=== PATIENT | male | born 1975 | race Caucasian/White ===

== ENCOUNTER 2019-08-25 10:37 | Inpatient (IN) | payer SELFPAY ==
[2019-08-25 11:35] LABS: Hematocrit 39 % (42-52); Hemoglobin 13.6 g/dL (14.0-18.0); Mean Corpuscular HGB Conc 35 g/dL (31-36); Mean Corpuscular Hemoglobin 34 pg (27-31); Mean Corpuscular Volume 99 fL (80-94); Red Blood Count 3.96 10^6 /uL (4.18-5.48); Red Cell Distribution Width 15 % (10-15); White Blood Count 4.9 10^3/uL (3.5-10.8)
[2019-08-25 11:36] LABS: INR 1.63 (0.82-1.09)
[2019-08-25 11:54] LABS: Albumin 3.5 g/dL (3.2-5.2); Albumin/Globulin Ratio 1.2 (1-3); BUN/Creatinine Ratio 5.6 (8-20); Calcium 8.4 mg/dL (8.6-10.3); EGFR Non-African American 74.4 (>60); Globulin 2.9 g/dL (2-4); Potassium 3.3 mmol/L (3.5-5.0); Total Protein 6.4 g/dL (6.4-8.9)
[2019-08-25 12:03] LABS: ABS Basophils 0.2 10^3/ul (0-0.2); ABS Lymphocytes 0.6 10^3/ul (1.0-4.8); ABS Monocytes 0.2 10^3/ul (0-0.8); ABS Neutrophils 3.9 10^3/ul (1.5-7.7); Eosinophil % 0.7 %; Lymphocyte % 11.3 %; Mean Platelet Volume 7.8 fL (7.4-10.4); Nucleated Red Blood Cells % 0.1; Platelet Count 94 10^3/uL (150-450)
--- NOTE | 2019-08-25 12:07 | ED ---
Complex/Multi-Sys Presentation - HPI Summary HPI Summary: Patient is a 44 y/o male w/ Hx of alcoholic hepatitis who presents to [facility] with chief complaint of diffuse jaundice. Color has been worsening since . Patient states that he drinks around 20 beers daily. He believes that he has been retaining fluid and also makes note of a recent mechanical fall. No AMS or abdominal pain reported. He denies Hx of seizures. Patient reports that he does not have a PCP currently. No daily medications are reported. SI is denied. Patient states that he has never been in rehab or detox but does note the last time he was hospitalized, he quit drinking alcohol for 8 months. Sister is present in the room. Pt does not report any fever, chills, erythema of eyes, sore throat, CP, SOB, cough, abdominal pain, N/V, dysuria, hematuria, myalgia, rash, or dizziness. On triage, pain is rated 0/10, nothing is noted to aggravate/alleviate Sx. Home medications and allergies are reviewed. - History Of Current Complaint Chief Complaint: EDGeneral Time Seen by Provider: 08/25/19 11:27 Hx Obtained From: Patient Onset/Duration: Lasting Weeks, Still Present Timing: Constant, Weeks Severity Currently: None - pain denied Aggravating Factor(s): nothing Alleviating Factor(s): nothing Associated Signs And Symptoms: Positive: Other - positive - jaundice, retention of fluid, fall; negative - AMS, fever, chills, erythema of eyes, sore throat, CP , SOB, cough, abdominal pain, N/V, dysuria, hematuria, myalgia, rash, SI or dizziness. Negative: Dizziness, SOB, Cough, Chest Pain, Nausea, Vomiting, Abdominal Pain, Fever - Allergies/Home Medications Allergies/Adverse Reactions: Allergies Allergy/AdvReac Type Severity Reaction Status Date / Time No Known Allergies Allergy Verified 08/25/19 10:52 Home Medications: Home Medications NK [No Home Medications Reported] 08/25/19 [History Confirmed 08/25/19] PMH/Surg Hx/FS Hx/Imm Hx Endocrine/Hematology History: Denies: Hx Diabetes, Hx Thyroid Disease Cardiovascular History: Denies: Hx Hypertension Respiratory History: Denies: Hx Asthma, Hx Chronic Obstructive Pulmonary Disease (COPD), Other Respiratory Problems/Disorders GI History: Reports: Hx Jaundice Denies: Hx Ulcer Comment Only: Hx Cirrhosis - possible Infectious Disease History: Yes Infectious Disease History: Reports: Hx Hepatitis Denies: Hx Clostridium Difficile, Hx Human Immunodeficiency Virus (HIV), Hx of Known/Suspected MRSA, Hx Shingles, Hx Tuberculosis, History Other Infectious Disease, Traveled Outside the [place] in Last 30 Days - Family History Known Family History: Negative: Cardiac Disease, Hypertension, Diabetes - Social History Alcohol Use: Daily Alcohol Amount: 20 beers daily Substance Use Type: Reports: None Smoking Status (MU): Former Smoker Type: Cigarettes Review of Systems Negative: Fever, Chills Negative: Drainage Negative: Sore Throat Negative: Chest Pain Negative: Shortness Of Breath, Cough Negative: Abdominal Pain, Vomiting, Nausea Negative: dysuria, hematuria Musculoskeletal: Other - positive - recent fall Positive: Edema - reports retention of fluid . Negative: Myalgia Skin: Other - positive - jaundice Negative: Rash Neurological: Other - negative - AMS, dizziness Psychological: Other - negative - SI All Other Systems Reviewed And Are Negative: Yes Physical Exam - Summary Physical Exam Summary: Constitutional: Well-developed, Well-nourished, Alert. (-) Distressed Skin: Jaundiced Skin; Warm, Dry HENT: Normocephalic; Atraumatic Eyes: Sclera Icterus. Neck: Musculoskeletal ROM normal neck. (-) JVD, (-) Stridor, (-) Tracheal deviation Cardio: Rhythm regular, rate normal, Heart sounds normal; Intact distal pulses; The pedal pulses are 2+ and symmetric. Radial pulses are 2+ and symmetric. (-) Murmur Pulmonary/Chest wall: Effort normal. (-) Respiratory distress, (-) Wheezes, (-) Rales Abd: Soft, (-) tenderness, (-) Distension, (-) Guarding, (-) Rebound Musculoskeletal: (-) Edema Lymph: (-) Cervical adenopathy Neuro: Alert, Oriented x3 Psych: Mood and affect Normal Triage Information Reviewed: Yes Vital Signs On Initial Exam: Initial Vitals Temp Pulse Resp BP Pulse Ox 96.9 F 104 19 150/77 99 08/25/19 10:48 08/25/19 10:48 08/25/19 10:48 08/25/19 10:48 08/25/19 10:48 Vital Signs Reviewed: Yes Procedures - Sedation Patient Received Moderate/Deep Sedation with Procedure: No Diagnostics - Vital Signs Vital Signs Temp Pulse Resp BP Pulse Ox 08/25/19 10:48 96.9 F 104 19 150/77 99 - Laboratory Result Diagrams: 08/25/19 11:18 08/25/19 11:18 Lab Statement: Any lab studies that have been ordered have been reviewed, and results considered in the medical decision making process. Re-Evaluation - Re-Evaluation First Eval Re-Evaluation Time: 13:10 Comment: Updates on lab results, patient is agreeable with admission Complex Multi-Symp Course/Dx Course Of Treatment: Patient is a 44 y/o male w/ Hx of alcoholic hepatitis who presents to [facility] with chief complaint of diffuse jaundice. Color has been worsening since 07/29/19. Patient states that he drinks around 20 beers daily. He believes that he has been retaining fluid and also makes note of a recent mechanical fall. No AMS or abdominal pain reported. On physical exam, skin is jaundiced, sclera icterus is noted. Bloodwork showed total bilirubin 31.40, direct bilirubin 19.40, AST 246, alk phos 217, ALT 64, ammonia 113, serum alc 233, glucose 313, calcium 8.4, BUN/creatinine ratio 5.6, anion gap 13. Chloride 95, potassium 3.3, sodium 132, INR 1.63, absolute lymphs 0.6, plt count 94, MCH 34, MCV 99, Hct 39, Hgb 13.6, RBC 3.96. Patient's case was discussed with Dr. Mckinley, who recommends that the patient should be admitted. It is noted that the patient is not a liver transplant candidate due to the fact that he is still drinking daily. Patient's case was discussed with Dr. Al, who accepts the patient for admission. - Diagnoses Provider Diagnoses: Alcoholic hepatitis, Hepatic failure - Physician Notifications Discussed Care Of Patient With: Ted Mckinley Time Discussed With Above Provider: 12:52 Instructed by Provider To: Other - 1252 - Patient's case was discussed with Dr. Mckinley, who recommends that the patient should be admitted. It is noted that the patient is not a liver transplant candidate due to the fact that he is still drinking daily. 1256 - Patient's case was discussed with Dr. Al, who accepts the patient for admission. - Critical Care Time Critical Care Time: 30-74 min - 35 minutes CCT Discharge ED - Sign-Out/Discharge Documenting (check all that apply): Patient Departure - admit - Discharge Plan Condition: Stable Disposition: ADMITTED TO [facility] Referrals: No Primary Care Phys,NOPCP [Primary Care Provider] - - Attestation Statements Document Initiated by Scribe: Yes Documenting Scribe: STEVE BARCENAS Provider For Whom Scribe is Documenting (Include Credential): GUILLERMINA MICHELLE MD Scribe Attestation: ISTEVE, scribed for GUILLERMINA MICHELLE MD on 08/25/19 at 1434. Status of Scribe Document: Ready
[2019-08-25 12:15] LABS: Total Bilirubin 31.4 mg/dL (0.2-1.0)
[2019-08-25] MEDS ORDERED: Docusate CAP* 100 MG PO PRN (14:19)
[2019-08-25] MEDS ORDERED: NS 0.9% 1000 ML** 1,000 ML IV SCH (14:30)
[2019-08-25] MEDS ORDERED: Acetaminophen TAB* 325 MG PO PRN (15:02)
[2019-08-25] MEDS ORDERED: Dextrose 50% VIAL 50 ml IV PUSH PRN (15:31)
[2019-08-25] MEDS ORDERED: Potassium Chlor TAB* 20 MEQ TAB.ER PO ONE (15:32)
[2019-08-25] MEDS ORDERED: Potassium Chloride* LIQUID 20 MEQ/15 ML UDC PO ONE (15:32)
--- NOTE | 2019-08-25 17:15 | HP ---
ADMISSION HISTORY AND PHYSICAL: DATE OF ADMISSION: 08/25/19 PRIMARY CARE PROVIDER: None. ATTENDING FOR THIS ADMISSION: Dr. Tomeka Abraham.* (DICTATED BY VERN MILLAN NP) CHIEF COMPLAINT: Jaundice. HISTORY OF PRESENT ILLNESS: Mr. Begum is a 44-year-old male patient with longstanding history of alcohol use and abuse, who presents in the emergency department today with his sister with a complaint of abdominal bloating and yellow discoloration to the skin. The patient states he several years ago did have detox from alcohol and abstained for 8 months at that time; however, he did start drinking again shortly thereafter. He did notice that around that his skin did start to change and he began to have noticeable jaundice at that time. He states his sister also noticed the discoloration to his skin and became concerned. He also noted that he started to become fluid bound and that his abdomen had started to become larger over the last 2 months. For these reasons, the patient states that he had his last drink of alcohol yesterday. He currently consumes anywhere from 20 to 30 alcoholic drinks per day, primarily beer. The patient states that the last time he detoxed from alcohol he was drinking vodka at that time. When he started drinking again, he thought drinking beer would not be a significant problem, so he drank beer instead, but he is drinking up to 30 beers per day, so his last beer was yesterday and he came to the emergency department today for evaluation. The patient states he knows he did have liver disease the last time he detoxed and he was concerned with the increase in jaundice that his liver disease has returned. In the emergency department, his laboratories do reveal some anemia. His H and H are low, MCV and MCH are high. His liver function tests are elevated. His total bilirubin is 31.5 and direct bili is 19.4. He also has a significantly elevated glucose and ammonia level is also elevated. His serum alcohol level remains high at 233, even though his last drink was yesterday. For these reasons, the emergency department physician reached out to Dr. Mckinley of GI service and also to hospitalist service to admit the patient. PAST MEDICAL HISTORY: As stated by him is none, although he has not been to a primary care physician in many years. His last hospitalization was approximately 5 years ago for alcohol detox and that was his last visit to a doctor. HOME MEDICATIONS: None as reported by the patient. ALLERGIES: He has no known drug allergies. FAMILY HISTORY: Mother of throat cancer at age 63. Father is alive, has diabetes, he is aged 72. He has a sister, who is alive and healthy. SOCIAL HISTORY: He did use to smoke. He did quit approximately 4 years ago. Alcohol consumption, 20 to 30 beers per day with last drink being yesterday. REVIEW OF SYSTEMS: The patient endorses positive nausea, but no vomiting, feeling of a reflux periodically and some cough. He denies any chest pain. No acute shortness of breath. No urinary complaints. No focal weakness. No visual disturbances. No rashes or lesions and no further constitutional complaints. PHYSICAL EXAMINATION GENERAL: Reveals a gentleman somewhat older than his stated age, tearful, but in no acute distress. VITAL SIGNS: Blood pressure 125/73, heart rate 80, respiratory rate 16, O2 saturation 95% on room air with a temperature of 99.5. HEENT: The patient is atraumatic, normocephalic. PERRLA. Icteric sclerae with some erythema to the lower lids. His eyes do appear to be a bit glassy. He has some capillary changes and some telangiectasia to the cheeks. Oral mucosa is moist. Tongue is midline. NECK: Supple, nontender. No JVD noted. No carotid bruits auscultated. LUNGS: Clear bilaterally to auscultation with no wheezing, rhonchi, or rales. CARDIOVASCULAR: S1, S2 present. Rate and rhythm are regular. No murmurs, gallops, or rubs noted. ABDOMEN: Soft, somewhat protuberant, but nondistended, nontender. No organomegaly appreciated. : Deferred. MUSCULOSKELETAL: There was no clubbing and no cyanosis. Skin on the lower extremities is somewhat taut and shiny, but there is no edema. NEUROLOGIC: Grossly intact with no focal deficits. PSYCHIATRIC: He is tearful, but otherwise cooperative and appropriate. SKIN: Skin in general is quite jaundiced, but there are no lesions and skin is otherwise warm, dry, and intact. DIAGNOSTIC STUDIES/LAB DATA: WBCs 4.9, RBCs 3.96, hemoglobin 13.6, hematocrit 39, MCV 99, MCH 34, platelets 94. Sodium 132, potassium 3.3, chloride 95, CO2 of 24, anion gap 13, BUN 6, creatinine 1.07, GFR 74.4, BUN/creatinine ratio 5.6 , glucose 313, calcium 8.4. Total bilirubin 31.40, direct bili 19.40, AST 246, ALT 64, alk phos 217, ammonia 113. Total protein 6.4, albumin 3.5, globulin 2.9 , albumin/globulin ratio 1.2. Lipase 47. Serum alcohol 233. INR is 1.63. Imaging: Ultrasound for paracentesis is pending. IMPRESSION: Mr. Begum is a 44-year-old male patient with a longstanding history of alcohol abuse, who presents to the emergency department today with profound jaundice, hepatic failure, and hyperbilirubinemia. PLAN: The patient has been admitted. 1. Liver failure secondary to alcohol abuse. The patient is profoundly jaundiced with an elevated T. bili. GI has been consulted. Dr. Mckinley will be seeing the patient tomorrow. In the meantime, we will send the patient for a diagnostic paracentesis to rule out spontaneous bacterial peritonitis. This will guide our therapy in terms of starting the patient on steroids or not tomorrow. The patient also has accompanying thrombocytopenia and coagulopathy. His INR is elevated and platelets are below 100. Our concern at this time is to continue to follow his laboratory results and ensure that he does not have any spontaneous bleeding and also that his creatinine and other laboratory values remain stable. We will defer to guidance from GI regarding additional medications and further therapy. This will also likely be determined by the results of his tap that he will have today. 2. Alcohol abuse. The patient will be given a banana bag. As his serum alcohol is still elevated, I suspect that he will not start detoxing until this falls below 100 and into normal limits or closer to 0. He has been placed on WAM protocol with Ativan. Currently, he is slightly tremulous, but is not showing overt signs of withdrawal as yet. He will be on WAM assessment every 2 hours and will be monitored closely. A consultation for Social Work has been placed. 3. Hyperglycemia. The patient denies any previous medical history; however, his glucose is 313. He will be placed on insulin sliding scale with lispro and a consistent carbohydrate diet and we will also check hemoglobin A1c and determine if the patient is in fact diabetic. Being that he has had no community followup and no primary care provider, I suspect there may be some component of diabetes or prediabetes. 4. Multiple electrolyte disturbances. Again, this is in the presence of hepatic failure and also likely nutritional imbalances. We will replete electrolytes accordingly. 5. Anemia, macrocytic and hypochromic. This is in the presence of alcoholism and I suspect he probably has B12 deficiency as well also in the presence of liver failure. We will continue to monitor liver function and also check his B levels; however, he is receiving thiamine, folate and multivitamins as well. We will also place consultation with Nutrition while we are trying to continue to stabilize the patient. 6. DVT prophylaxis: The patient is high risk for bleeding given his thrombocytopenia and elevated INR. He will have SCDs and ambulation only. 7. Diet: Consistent carbohydrate as tolerated. 8. Disposition: The patient has been admitted to inpatient. The rest of the patient's course will be determined by further diagnostics, laboratories, and any other input from other providers as warranted during this admission. TIME SPENT: 70 minutes on admission plan of care. This plan of care has been discussed with Dr. Tomeka Abraham and she is in agreement with the plan. VERN MILLAN NP [id number]/[facility] #: [id number] MELISSA
[2019-08-25] MEDS: Insulin LISPRO* 1 UNITS UNIT SUBCUT SCH ×2 (17:38→20:12)
[2019-08-25] MEDS ORDERED: Thiamine IV 100 MG, Folic Acid IV* 1 MG, Multiple Vitamin IV ADULT* 10 ML in NS 0.9% 10... IV ONE (18:00)
[2019-08-25] MEDS: Thiamine IV 100 MG, Folic Acid IV* 1 MG, Multiple Vitamin IV ADULT* 10 ML in NS 0.9% 10... IV ONE ×2 (18:12→18:45)
[2019-08-25] MEDS: PrednisoLONE 3 MG/ML ORAL.SOLU 15 MG/5 ML ORAL.SOLN PO SCH (18:21)
[2019-08-25] MEDS: Gabapentin CAP(*) 300 MG PO SCH (20:10)
--- NOTE | 2019-08-25 20:32 | CONS ---
CONSULTATION REPORT: DATE OF CONSULT: 08/25/19 REQUESTING PROVIDERS: Dr. Cote and Corinne Aguero NP REASON FOR CONSULTATION: Alcoholic hepatitis, jaundice. HISTORY OF PRESENT ILLNESS: This is a 44-year-old male with a longstanding history of alcohol abuse, who presented to the emergency room today with jaundice and abdominal bloating. He states that his last drink was yesterday. He drinks 20 to 30 beers a day. He did have a brief 6- to 7-month period of abstinence a few years ago after an episode of alcoholic hepatitis. He states that he then became bored and then returned to alcoholism. 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 He denies any history of IV drug use or blood transfusions before 1991 or homemade tattoos. He denies any increase in abdominal size, admits to some lower extremity edema. Does admit to a tremor. He denies any hematemesis. He denies any dysphagia or odynophagia. Denies any abdominal discomfort. Denies any weight loss or weight gain. Remainder of the 14-point review of systems is grossly negative. PAST MEDICAL HISTORY: Previous episode of alcoholic hepatitis in 2014. HOME MEDICATIONS: None. ALLERGIES: No known drug allergies. FAMILY HISTORY: Maternal alcoholism and liver disease. She of potentially esophageal cancer at 63. Father is a diabetic. SOCIAL HISTORY: Consumes 20 to 30 beers a day. Occasional marijuana use. Denies any intravenous or other illicit drugs. REVIEW OF SYSTEMS: Remainder of the 14-point review of systems is grossly negative. PHYSICAL EXAMINATION: Vital Signs: Blood pressure is 149/67, pulse 89, respiratory rate 14, 98.6 was temperature, 98% on room air. In general, alert, oriented x3, jaundiced. HEENT: Atraumatic, normocephalic. Pupils equal, round , reactive to light. Extraocular movements are intact. Conjunctivae are pink. Sclerae are icteric bilaterally. Cardiovascular: Regular rate and rhythm. S1 , S2. Respiratory: Clear to auscultation bilaterally. Abdomen: Soft, nontender, nondistended. Bowel sounds positive. No appreciating shifting dullness. Extremities: 1+ edema bilaterally. Neuro: Asterixis is present. Skin: Few scattered ecchymosis. LABORATORY DATA: Hemoglobin 13.6, INR 1.63, bilirubin 31.4, direct is 19.4, AST is 246, ALT is 64, alkaline phosphatase 117, ammonia 113, sodium 132, potassium 3.3, creatinine 1.07, albumin 3.5, serum alcohol level in the emergency room is 233. He had an abdominal ultrasound that did not reveal any ascitic fluid. ASSESSMENT AND PLAN: This is a 44-year-old male with alcoholic hepatitis, likely component of cirrhosis in a setting of longstanding alcohol abuse. 1. Alcoholic hepatitis. Discriminant function above 32. No evidence of infection. I would recommend that we start steroids. I will start prednisolone 40 mg p.o. daily. Discussed extensively with him that he absolutely needs to cease alcohol in entirety. His risk of in the next year with continued alcohol use likely reaches upwards of 80 to 90%. I discussed with him the inpatient rehab is likely the best option for him and if it is offered that he should take it. His MELD-Na score is 28 indicating a risk of of about 30% over the next 3 months, however, with the component of alcoholic hepatitis his risk of is likely in excess of 45% even with optimal medical therapy and abstinence. He is not a transplantation candidate given multiple relapses in the past despite strong counseling and continued use up until today. 2. Possible cirrhosis. MELD-Na is 28, unclear exactly how much this is alcoholic hepatitis versus cirrhosis. Needs an eventual EGD in the next month or so to evaluate for varices. Should have an ultrasound of the right upper quadrant to rule out hepatoma and also to evaluate the portal veins. 3. Alcohol abuse, extensively counseled. [id number]/[facility] #: [id number] [facility]ITALKali
[2019-08-26 06:55] LABS: ABS Lymphocytes 0.3 10^3/ul (1.0-4.8); ABS Monocytes 0.2 10^3/ul (0-0.8); ABS Neutrophils 2.8 10^3/ul (1.5-7.7); Eosinophil % 0.2 %; Hematocrit 34 % (42-52); Hemoglobin 11.8 g/dL (14.0-18.0); Lymphocyte % 8.7 %; Mean Corpuscular HGB Conc 35 g/dL (31-36); Mean Corpuscular Hemoglobin 34 pg (27-31); Mean Corpuscular Volume 98 fL (80-94); Mean Platelet Volume 8.2 fL (7.4-10.4); Platelet Count 68 10^3/uL (150-450); Red Blood Count 3.51 10^6 /uL (4.18-5.48); Red Cell Distribution Width 15 % (10-15); White Blood Count 3.3 10^3/uL (3.5-10.8)
[2019-08-26 06:57] LABS: INR 1.77 (0.82-1.09)
[2019-08-26 07:05] LABS: Albumin 3.1 g/dL (3.2-5.2); Calcium 7.8 mg/dL (8.6-10.3); Potassium 3.3 mmol/L (3.5-5.0)
[2019-08-26 07:11] LABS: Albumin/Globulin Ratio 1.2 (1-3); BUN/Creatinine Ratio 7.1 (8-20); EGFR Non-African American 98.4 (>60); Globulin 2.5 g/dL (2-4); Total Protein 5.6 g/dL (6.4-8.9)
[2019-08-26 07:15] LABS: Total Bilirubin 28.3 mg/dL (0.2-1.0)
[2019-08-26] MEDS: KCL 20 MEQ/100 ML IVPREMIX* 20 MEQ/100 ML BAG IV SCH ×2 (07:57→10:30)
[2019-08-26] MEDS: Thiamine TAB* 100 MG TAB PO SCH (08:01)
[2019-08-26] MEDS: Multivitamins/Minerals TAB PO SCH (08:01)
[2019-08-26] MEDS: Folic Acid TAB* 1 MG PO SCH (08:01)
[2019-08-26] MEDS: Insulin LISPRO* 1 UNITS UNIT SUBCUT SCH ×4 (08:11→20:08)
[2019-08-26] MEDS: PrednisoLONE 3 MG/ML ORAL.SOLU 15 MG/5 ML ORAL.SOLN PO SCH (10:16)
--- NOTE | 2019-08-26 10:32 | PN ---
Subjective Date of Service: 08/26/19 Interval History: Patient is feeling tremulous, had one episode of diarrhea, has been getting intermittently dizzy on standing. Patient denies CP, SOB, Palpitations, N/V, or other pain. Patient had no blood in his stools. Patient is wtill motivated to alcohol abstinence. Family History: Unchanged from Admission Social History: Unchanged from Admission Past Medical History: Unchanged from Admission Objective Active Medications: Acetaminophen (Tylenol Tab*) 650 mg PO Q6H PRN PRN Reason: MILD PAIN or TEMP > 100.4 Dextrose (Dextrose 50% Vial 50 Ml*) 25 ml IV PUSH .FOR FS < 60 - SS PRN PRN Reason: FS < 60 Docusate Sodium (Colace Cap*) 100 mg PO BID PRN PRN Reason: CONSTIPATION Folic Acid (Folvite Tab*) 1 mg PO DAILY [facility] Last Admin: 08/26/19 08:01 Dose: 1 mg Gabapentin (Neurontin Cap(*)) 300 mg PO BEDTIME NATALIO Last Admin: 08/25/19 20:10 Dose: 300 mg Sodium Chloride (Ns 0.9% 1000 Ml) 1,000 mls @ 75 mls/hr IV PER RATE [facility] Last Admin: 08/25/19 22:32 Dose: 75 mls/hr Potassium Chloride (Potassium Chloride 20 Meq/100 Ml Ivpremix*) 20 meq in 100 mls @ 50 mls/hr IV Q2H [facility] Stop: 08/26/19 11:59 Last Admin: 08/26/19 07:57 Dose: 50 mls/hr Insulin Human Lispro (Humalog*) 0 units SUBCUT ACHS [facility]; Protocol Last Admin: 08/26/19 08:11 Dose: Not Given Lorazepam (Ativan Tab(*)) 0 - 6 mg PO .PER [facility] PROTOCOL [facility]; Protocol Multivitamins/Minerals (Theragran/Minerals Tab*) 1 tab PO DAILY [facility] Last Admin: 08/26/19 08:01 Dose: 1 tab Prednisolone Sodium Phosphate (Prednisolone 3 Mg/Ml 5 Ml Oral.Solution*) 40 mg PO DAILY [facility] Last Admin: 08/26/19 10:16 Dose: 40 mg Thiamine HCl (Vitamin B-1 Tab*) 100 mg PO DAILY [facility] Last Admin: 08/26/19 08:01 Dose: 100 mg Vital Signs - 8 hr 08/26/19 08/26/19 03:03 05:00 Temperature 98.5 F 99 F Pulse Rate 84 84 Respiratory 16 16 Rate Blood Pressure 117/59 123/64 (mmHg) O2 Sat by Pulse 99 99 Oximetry Oxygen Devices in Use Now: None Appearance: Patient is a 44yo male who is markedly jaundiced, is sitting in the bed with a mild tremor in NAD. Eyes: PERRLA, - - Marked Scleral Icterus. Ears/Nose/Mouth/Throat: NL Teeth, Lips, Gums, Clear Oropharnyx, Mucous Membranes Moist Neck: NL Appearance and Movements; NL JVP, Trachea Midline Respiratory: Symmetrical Chest Expansion and Respiratory Effort, Clear to Auscultation Cardiovascular: NL Sounds; No Murmurs; No JVD, RRR, No Edema Abdominal: NL Sounds; No Tenderness; No Distention, No Hepatosplenomegaly Lymphatic: No Cervical Adenopathy Extremities: No Edema, No Clubbing, Cyanosis Skin: No Nodules or Sclerosis, - - Jaundice, No Spider Angiomas. Neurological: Alert and Oriented x 3, NL Sensation, NL Muscle Strength and Tone , - - CN II-XII intact. Result Diagrams: 08/26/19 06:09 08/26/19 06:09 Assess/Plan/Problems-Billing Assessment: Patient is a 44yo male with a PMH for severe alcohol abuse and alcoholic hepatitis, here with recurrent alcoholic hepatitis and alcohol withdrawal. - Patient Problems (1) AH (alcoholic hepatitis) Current Visit: No Status: Acute Priority: High Onset Date: 09/02/15 Code (s): K70.10 - ALCOHOLIC HEPATITIS WITHOUT ASCITES SNOMED Code(s): 213936859 Comment: - MELD score 28. Bili 31 on admission. - No encepalopathy. Afebrile. No sign of SBP, WBC count not done on peritoneal fluid from yesterday - Appreciate GI consult; Continue prednisolone for MDF>32. - Needs strict abstinence, even without has high risk of mortality. - Complicated by pancytopenia, Synthetic liver dysfunctuion - Liver US to R/O Hepatoma and assess for likely portal HTN. (2) ETOH abuse Current Visit: No Status: Acute Priority: High Onset Date: 09/02/15 Code (s): F10.10 - ALCOHOL ABUSE, UNCOMPLICATED SNOMED Code(s): 50635946 Comment: - Alcohol level still elevated on admission, is showing early signs of withdrawal - Continue WAM - Social Work Consult pending, - Current recommendation for inpatient rehab. (3) Full code status Current Visit: Yes Status: Acute Code(s): Z78.9 - OTHER SPECIFIED HEALTH STATUS SNOMED Code(s): 367670488 (4) DVT prophylaxis Current Visit: Yes Status: Acute Code(s): Z29.9 - ENCOUNTER FOR PROPHYLACTIC MEASURES, UNSPECIFIED SNOMED Code(s): 479346749 Comment: - SCDs only in setting of thrombocytopenia and elevated INR. Status and Disposition: Inpatient for management of Acute Hepatitis and Likely Alcohol Withdrawal.
[2019-08-26] MEDS: LORazepam TAB(*) 1 MG PO SCH (11:40)
[2019-08-26] MEDS: NS 0.9% 1000 ML** 1,000 ML IV SCH (11:47)
[2019-08-26] MEDS ORDERED: Iohexol 300* (CONTRAST) 10 ML SDV IV ONE (17:46)
[2019-08-26] MEDS: Gabapentin CAP(*) 300 MG PO SCH (20:08)
[2019-08-27 06:54] LABS: ABS Basophils 0.1 10^3/ul (0-0.2); ABS Lymphocytes 0.9 10^3/ul (1.0-4.8); ABS Monocytes 0.5 10^3/ul (0-0.8); ABS Neutrophils 3.4 10^3/ul (1.5-7.7); Eosinophil % 0.5 %; Hematocrit 36 % (42-52); Hemoglobin 12.6 g/dL (14.0-18.0); Lymphocyte % 18.2 %; Mean Corpuscular HGB Conc 35 g/dL (31-36); Mean Corpuscular Hemoglobin 35 pg (27-31); Mean Corpuscular Volume 98 fL (80-94); Mean Platelet Volume 8.4 fL (7.4-10.4); Nucleated Red Blood Cells % 0.1; Platelet Count 77 10^3/uL (150-450); Red Blood Count 3.66 10^6 /uL (4.18-5.48); Red Cell Distribution Width 15 % (10-15); White Blood Count 4.8 10^3/uL (3.5-10.8)
[2019-08-27 06:56] LABS: INR 1.8 (0.82-1.09)
[2019-08-27] MEDS: Insulin LISPRO* 1 UNITS UNIT SUBCUT SCH (06:58)
[2019-08-27 07:02] LABS: Albumin/Globulin Ratio 1.2 (1-3); BUN/Creatinine Ratio 8.9 (8-20); Calcium 8.2 mg/dL (8.6-10.3); EGFR African American 127.8 (>60); EGFR Non-African American 105.6 (>60); Globulin 2.5 g/dL (2-4); Potassium 3.1 mmol/L (3.5-5.0); Total Protein 5.5 g/dL (6.4-8.9)
[2019-08-27 07:22] LABS: Total Bilirubin 31.8 mg/dL (0.2-1.0)
[2019-08-27] MEDS: Multivitamins/Minerals TAB PO SCH (07:22)
[2019-08-27] MEDS: Thiamine TAB* 100 MG TAB PO SCH (07:22)
[2019-08-27] MEDS: Folic Acid TAB* 1 MG PO SCH (07:22)
[2019-08-27] MEDS: PrednisoLONE 3 MG/ML ORAL.SOLU 15 MG/5 ML ORAL.SOLN PO SCH (07:22)
[2019-08-27] MEDS ORDERED: Potassium Chloride* LIQUID 20 MEQ/15 ML UDC PO ONE (07:25)
[2019-08-27] MEDS: KCL 20 MEQ/100 ML IVPREMIX* 20 MEQ/100 ML BAG IV SCH ×2 (08:26→11:23)
[2019-08-27] MEDS: NS 0.9% 1000 ML** 1,000 ML IV SCH ×2 (08:27→23:36)
--- NOTE | 2019-08-27 10:11 | PN ---
Subjective Date of Service: 08/27/19 Interval History: Patient is feeling more tremulous today and more unsteady on his feet. Patient is having non-bloody diarrhea, patient denies F/C, N/V, abdominal pain, dizziness, CP, SOB, dysuria, or other pain. 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 Family History: Unchanged from Admission Social History: Unchanged from Admission Past Medical History: Unchanged from Admission Objective Active Medications: Acetaminophen (Tylenol Tab*) 650 mg PO Q6H PRN PRN Reason: MILD PAIN or TEMP > 100.4 Dextrose (Dextrose 50% Vial 50 Ml*) 25 ml IV PUSH .FOR FS < 60 - SS PRN PRN Reason: FS < 60 Docusate Sodium (Colace Cap*) 100 mg PO BID PRN PRN Reason: CONSTIPATION Folic Acid (Folvite Tab*) 1 mg PO DAILY [facility] Last Admin: 08/27/19 07:22 Dose: 1 mg Gabapentin (Neurontin Cap(*)) 300 mg PO BEDTIME [facility] Last Admin: 08/26/19 20:08 Dose: 300 mg Sodium Chloride (Ns 0.9% 1000 Ml) 1,000 mls @ 50 mls/hr IV PER RATE [facility] Last Admin: 08/27/19 08:27 Dose: 50 mls/hr Potassium Chloride (Potassium Chloride 20 Meq/100 Ml Ivpremix*) 20 meq in 100 mls @ 50 mls/hr IV Q2H [facility] Stop: 08/27/19 11:59 Last Admin: 08/27/19 08:26 Dose: 50 mls/hr Lorazepam (Ativan Tab(*)) 0 - 6 mg PO .PER [facility] PROTOCOL [facility]; Protocol Last Admin: 08/26/19 11:40 Dose: 2 mg Multivitamins/Minerals (Theragran/Minerals Tab*) 1 tab PO DAILY [facility] Last Admin: 08/27/19 07:22 Dose: 1 tab Prednisolone Sodium Phosphate (Prednisolone 3 Mg/Ml 5 Ml Oral.Solution*) 40 mg PO DAILY [facility] Last Admin: 08/27/19 07:22 Dose: 40 mg Thiamine HCl (Vitamin B-1 Tab*) 100 mg PO DAILY [facility] Last Admin: 08/27/19 07:22 Dose: 100 mg Vital Signs - 8 hr 08/27/19 08/27/19 08/27/19 02:41 05:11 07:12 Temperature 97.4 F 98.3 F 97.6 F Pulse Rate 94 88 82 Respiratory 16 16 18 Rate Blood Pressure 137/77 127/66 111/93 (mmHg) O2 Sat by Pulse 98 100 100 Oximetry 08/27/19 08:00 Temperature Pulse Rate Respiratory 18 Rate Blood Pressure (mmHg) O2 Sat by Pulse Oximetry Oxygen Devices in Use Now: None Appearance: Patient is a 44yo male who is markedly jaundiced, is tremulous, and is sitting in the bed in NAD. Eyes: No Scleral Icterus, PERRLA Ears/Nose/Mouth/Throat: NL Teeth, Lips, Gums, Clear Oropharnyx, Mucous Membranes Moist Neck: NL Appearance and Movements; NL JVP, Trachea Midline Respiratory: Symmetrical Chest Expansion and Respiratory Effort, Clear to Auscultation Cardiovascular: NL Sounds; No Murmurs; No JVD, RRR, No Edema Abdominal: No Hepatosplenomegaly, - - Slightly distended. Lymphatic: No Cervical Adenopathy Extremities: No Edema, No Clubbing, Cyanosis Skin: No Nodules or Sclerosis, - - No secondary signs of cirrhosis, Jaundice. Neurological: Alert and Oriented x 3, NL Sensation, NL Muscle Strength and Tone , - - Intention tremor. Result Diagrams: 08/27/19 05:51 08/27/19 05:51 Assess/Plan/Problems-Billing Assessment: Patient is a 44yo male with a PMH for severe alcohol abuse and alcoholic hepatitis, here with recurrent alcoholic hepatitis and alcohol withdrawal. - Patient Problems (1) AH (alcoholic hepatitis) Current Visit: No Status: Acute Priority: High Onset Date: 09/02/15 Code (s): K70.10 - ALCOHOLIC HEPATITIS WITHOUT ASCITES SNOMED Code(s): 242740501 Comment: - MELD score 28. Bili 31 on admission. - No encepalopathy. Afebrile. No sign of SBP, WBC count not done on peritoneal fluid from yesterday - Appreciate GI consult; Continue prednisolone for MDF>32. - Needs strict abstinence, even without has high risk of mortality. - Complicated by pancytopenia, Synthetic liver dysfunctuion - Liver US shows no Hepatoma - Significant portal HTN, Equivocal findings consistent with portal venous thrombosis - Will need screening endoscopy for varices before discharge (2) ETOH abuse Current Visit: No Status: Acute Priority: High Onset Date: 09/02/15 Code (s): F10.10 - ALCOHOL ABUSE, UNCOMPLICATED SNOMED Code(s): 07890437 Comment: - Alcohol level still elevated on admission, is showing early signs of withdrawal, not getting significantly worse. - Continue WAM - Social Work Consult pending, - Current recommendation for inpatient rehab. (3) Full code status Current Visit: Yes Status: Acute Code(s): Z78.9 - OTHER SPECIFIED HEALTH STATUS SNOMED Code(s): 934176812 (4) DVT prophylaxis Current Visit: Yes Status: Acute Code(s): Z29.9 - ENCOUNTER FOR PROPHYLACTIC MEASURES, UNSPECIFIED SNOMED Code(s): 270138041 Comment: - SCDs only in setting of thrombocytopenia and elevated INR. Status and Disposition: Inpatient for management of Acute Hepatitis and Likely Alcohol Withdrawal.
--- NOTE | 2019-08-27 15:59 | PN ---
Hospitalist Progress Note Date of Service: 08/27/19 Received call from Radiologist stating that reassessment shows there is non- occlusive thrombus in Right Portal Vein. Unable to comment on chronicity. Also stated that he thought there were likely varices. Discussed update with Account Financial Manager and no indication for anticoagulation until EGD is unable to assess varices as he is a high risk for anticoagulation. Cancel Doppler for tomorrow.
[2019-08-27] MEDS: LORazepam TAB(*) 1 MG PO SCH (17:06)
[2019-08-27] MEDS ORDERED: Lorazepam PYXIS KEY PRN ×3 (18:47→20:55)
[2019-08-27] MEDS ORDERED: LORazepam INJ* 2 MG/ML 1 ML VIAL IV PUSH SCH (19:00)
[2019-08-27] MEDS: Gabapentin CAP(*) 300 MG PO SCH (20:17)
[2019-08-27] MEDS ORDERED: diPHENhydraMINE IV* 50 MG/ML 1 ml VIAL (BENADRYL) IV PRN (20:22)
[2019-08-27] MEDS ORDERED: Haloperidol INJ IV/IM* 5 MG/ML AMP IM PRN (20:23)
[2019-08-27] MEDS ORDERED: Haloperidol INJ IV/IM* 5 MG/ML AMP ONE (20:28)
[2019-08-27] MEDS ORDERED: diPHENhydraMINE IV* 50 MG/ML 1 ml VIAL (BENADRYL) ONE (20:29)
[2019-08-27] MEDS ORDERED: LORazepam INJ* 2 MG/ML 1 ML VIAL ONE ×3 (20:31→21:03)
[2019-08-27] MEDS ORDERED: Lorazepam PYXIS KEY ONE ×3 (20:31→21:03)
[2019-08-27] MEDS: LORazepam INJ* 2 MG/ML 1 ML VIAL IV PUSH PRN (20:36)
[2019-08-27] MEDS ORDERED: LORazepam INJ* 2 MG/ML 1 ML VIAL IV PUSH ONE ×2 (20:55)
--- NOTE | 2019-08-27 21:36 | PROCNOTE ---
- Assessment for Patient Restraint Evaluation of the Patient's Immediate Situation: Patient withdrawing from alcohol. Responding to internal stimuli. No following any orders or instructions. Not responding to multiple ativans required 4 point restrains with security to inject medications. After benadryl, ativan and haldol still no real response needed 4 point restraints to avoid harm to self and others. Patient's Reaction to Intervention: Still agitated. Patient's Medication and Behavioral Condition: Alcohol withdrawal with previous history of drinking 30 beers a day up until 2 days ago having severe withdrawal. Transfer to ICU for precedex along with 4 point restraints. Evaluate Need for Continued Restraint: Continue
[2019-08-27] MEDS ORDERED: Dexmedetomidine* 1,000 MCG in NS 0.9% 250 ML* 240 ML IV SCH (22:00)
[2019-08-28] MEDS: Lactated Ringers 1000 ML Bag* 1,000 ML IV SCH ×3 (02:00→19:56)
[2019-08-28 05:24] LABS: Hematocrit 35 % (42-52); Hemoglobin 11.9 g/dL (14.0-18.0); Mean Corpuscular HGB Conc 34 g/dL (31-36); Mean Corpuscular Hemoglobin 34 pg (27-31); Mean Corpuscular Volume 99 fL (80-94); Mean Platelet Volume 8.5 fL (7.4-10.4); Platelet Count 77 10^3/uL (150-450); Red Blood Count 3.52 10^6 /uL (4.18-5.48); Red Cell Distribution Width 15 % (10-15); White Blood Count 4.8 10^3/uL (3.5-10.8)
[2019-08-28 05:25] LABS: INR 2.2 (0.82-1.09)
[2019-08-28 05:34] LABS: Albumin 2.9 g/dL (3.2-5.2); Albumin/Globulin Ratio 1.3 (1-3); BUN/Creatinine Ratio 8.6 (8-20); Calcium 8.2 mg/dL (8.6-10.3); EGFR African American 146.9 (>60); EGFR Non-African American 121.4 (>60); Globulin 2.3 g/dL (2-4); Total Protein 5.2 g/dL (6.4-8.9)
[2019-08-28 05:58] LABS: Total Bilirubin 31.1 mg/dL (0.2-1.0)
[2019-08-28 06:00] LABS: ABS Lymphocytes 0.7 10^3/ul (1.0-4.8); ABS Monocytes 0.3 10^3/ul (0-0.8); ABS Neutrophils 3.7 10^3/ul (1.5-7.7); Eosinophil % 0.3 %; Lymphocyte % 15.2 %; Nucleated Red Blood Cells % 0.1
[2019-08-28] MEDS: KCL 20 MEQ/100 ML IVPREMIX* 20 MEQ/100 ML BAG IV SCH ×5 (07:54→18:42)
[2019-08-28] MEDS: Thiamine TAB* 100 MG TAB PO SCH (10:13)
[2019-08-28] MEDS: Folic Acid TAB* 1 MG PO SCH (10:14)
[2019-08-28] MEDS: PrednisoLONE 3 MG/ML ORAL.SOLU 15 MG/5 ML ORAL.SOLN PO SCH (10:14)
[2019-08-28] MEDS: Multivitamins/Minerals TAB PO SCH (10:14)
--- NOTE | 2019-08-28 12:19 | PN ---
Date of Service: 08/28/19 - HD 4 Critical Care Services: 44 yo M with history of signficant alcohol abuse and alcoholic hepatitis presented to ED on August 25, after friend convinced him he was turning yellow and he should come in. Per patient, jaundice has worsened since 07/29/2019 and he has been retaining fluid. On evaluation he was tachycardic to 104 but otherwise hemodynamically stable. Physical exam notable for jaundice but no other significant findings. Labs notable for Na 132, K 3.3. Tbili 19.4, ALK 217 , AST 246, ALT 64, ammonia 113. etOH 223 He was admitted to the medical service and GI consulted. Not a liver transplant candidate at this time secondary to ongoing drinking. 08/26: Pt reports feeling tremulous consistent with early stages of withdrawal. intermittently dizzing on standing. MELD score 28. On prednisolone for MDF> 32. Pancytopenic. Synthetic liver dysfunction noted. 08/27: More tremulous and unsteady. continues to have nonbloody diarrhea. US Liver with signficant portal hypertension, portal venous thrombosis of right portal vein, nonocclusive. Negative for hepatoma. Per GI no anticoagulation for nonocclusive portal vein thrombus until EGD done to assess for varices as he is a high risk for bleeding. 08/28: Overnight became more confused, delirious with hallucinations. Required 4 security guards to maintain safety. Transferred to ICU and started on Precedex gtt. Vital Signs: Temp Pulse Resp BP SpO2 FiO2 96.1 F 56 15 78/47 96 08/28/19 12:00 08/28/19 12:03 08/28/19 12:03 08/28/19 12:03 08/28/19 12:03 Physical Exam: Gen: jaundiced HEENT: intact, dry mucus membranes Lungs: nonlabored Cardiac: RRR Abdomen: soft, nondistended Extremities: warm, dry Neuro: sedated Fluid Balance (Past 24 Hours): I= O= Net Intake & Output 08/26/19 08/27/19 08/28/19 08/29/19 07:59 06:59 06:59 06:59 Intake Total 2913 Output Total 1700 625 Balance 1213 -625 Weight Intake: IV Fluids 1743 LR 950 NS (0.9%) 400 Potassium 210 Precedex 183 IVPB NS (0.9%) Potassium Oral 1170 Output: Urine 1700 Andres 625 Other: Estimated Void Medium # Voids 2 Labs: Laboratory Results - last 24 hr 08/27/19 08/28/19 08/28/19 23:22 05:07 05:07 WBC 4.8 RBC 3.52 L Hgb 11.9 L Hct 35 L MCV 99 H MCH 34 H MCHC 34 RDW 15 Plt Count 77 L MPV 8.5 Neut % (Auto) 77.7 Lymph % (Auto) 15.2 Callahan % (Auto) 6.0 Eos % (Auto) 0.3 Baso % (Auto) 0.8 Absolute Neuts (auto) 3.7 Absolute Lymphs (auto) 0.7 L Absolute Monos (auto) 0.3 Absolute Eos (auto) 0.0 Absolute Basos (auto) 0.0 Absolute Nucleated RBC 0.0 Nucleated RBC % 0.1 INR (Anticoag Therapy) 2.20 H Sodium Potassium Chloride Carbon Dioxide Anion Gap BUN Creatinine Est GFR ( Amer) Est GFR (Non-Af Amer) BUN/Creatinine Ratio Glucose Calcium Total Bilirubin AST ALT Alkaline Phosphatase Ammonia 95 H Total Protein Albumin Globulin Albumin/Globulin Ratio 08/28/19 05:07 WBC RBC Hgb Hct MCV MCH MCHC RDW Plt Count MPV Neut % (Auto) Lymph % (Auto) Callahan % (Auto) Eos % (Auto) Baso % (Auto) Absolute Neuts (auto) Absolute Lymphs (auto) Absolute Monos (auto) Absolute Eos (auto) Absolute Basos (auto) Absolute Nucleated RBC Nucleated RBC % INR (Anticoag Therapy) Sodium 136 Potassium 3.0 L Chloride 108 Carbon Dioxide 21 L Anion Gap 7 BUN 6 Creatinine 0.70 Est GFR ( Amer) 146.9 Est GFR (Non-Af Amer) 121.4 BUN/Creatinine Ratio 8.6 Glucose 122 H Calcium 8.2 L Total Bilirubin 31.10 H* AST 124 H ALT 53 H Alkaline Phosphatase 163 H Ammonia Total Protein 5.2 L Albumin 2.9 L Globulin 2.3 Albumin/Globulin Ratio 1.3 Studies: 08/[address]: cirrhotic liver with evidence of portal hypertension. Liver US: hematomegaly and increased echogenicity corresponding with history of hepatitis. no focal liver lesions identified. Abd US: No ascites Nutrition: NPO until mental status improved Impression: 44 yo M with signfiicant alcohol abuse history and alcoholic hepatitis admitted with recurrent alcoholic hepatitis and synthetic liver dysfunction. Transferred to ICU on 11/3 PM for delirium tremens. Plan: Hospital Diagnoses: #1: Alcoholic hepatitis #2: Delirium tremens #3: Synthetic liver dysfunction #4: Hypotension, medication induced Cardiovascular: (1) Sinus tachycardia due to delirium tremens; (2) Hypotension , medication induced -- HR 52-143 -- SBP 74-157 -- Telemetry Home meds: None Pulmonary: No acute issues -- RR 12-178 -- sats 96-97 on RA Home meds: None Gastrointestinal: (1) Alcoholic hepatitis; (2) Synthetic liver dysfunction; (3 ) Hyperammonemia -- LFTs tbili 31.10 from 31.80 ALK 163 from 167 AST 124 from 155 ALT 53 from 54 -- Ammonia 95 -- diet: NPO until mental status improved. start TF once NG placed -- bowel regimen: PRN Docusate -- ulcer prophylaxis: Not indicated at this time Home meds: None Endocrine: No acute issues -- monitor BGs Home meds: None Renal: (1) Hyponatremia, resolved; (2) Hypokalemia; (3) Hypocalcemia -- UOP: 71 ml/hr -- Cr 0.70 from 0.79 -- Lytes Na 136 from 134, follow trend K 3.0, replace Ca 8.2, replace Mag ordered with AM labs Phos ordered with AM Labs -- IVF: LR @ 150 ml/hr Home meds: None Infectious disease: (1) Hypothermia -- Tmax 98.1 -- Daryl hugger started for hypothermia -- WBC 4.8 from 4.8 -- Micro 08/28 MRSA negative -- ABX None Home meds: None Neurologic: (1) delirium tremens -- [facility] protocol -- Precedex gtt for agitation due to alcohol withdrawal -- PRN Benadryl -- PRN Haldol and Ativan for agitation -- Folic acid & Thiamine -- Nightly gabapentin Home meds: None Hematological: (1) Pancytopenia; (2) Coagulopathy secondary to synthetic liver dysfunction -- Hgb 11.9 from 12.6 -- Plt 77 from 77 -- Coags INR 2.20 -- DVT prophylaxis: SCDs Home meds: None Metabolic: No acute issues Home meds: None Other: No acute issues -- MVI Home meds: None Deep vein thrombosis prophylaxis: SCDs Dietary: not indicated at this time Condition: critical Prognosis: poor Code status: full Disposition: continue ICU Care Family (sister) updated at bedside regarding interval events and plan of care Cumulative time spent in the care of this patient (excluding any procedure time) : at least 50 minutes. Patient care included clinical interview (with patient and/or family), bedside exam of the patient, review of labs, x-rays, and other ancillary data, coordination of (respiratory, nursing care, review of patient's records, discussion regarding patients management with involved consultants, primary physician, pharmacists, and other healthcare personnel (dietary, case management , physical/occupational therapy etc.) Critical Care Time: 50 min
[2019-08-28] MEDS: Dexmedetomidine* 1,000 MCG in NS 0.9% 250 ML* 240 ML IV SCH (12:21)
[2019-08-28] MEDS ORDERED: Calcium Gluconate INJ* 1 GM in NS 0.9% 50 ML* 50 ML IVPB ONE (12:35)
[2019-08-28] MEDS ORDERED: Norepinephrine 16MCG/ML IVPRE* 4,000 MCG/250 ML BAG IV ONE (13:33)
[2019-08-28] MEDS: Albumin Human 25%* 25 GM/100 ML BTL IV SCH ×3 (13:36→23:08)
[2019-08-28] MEDS ORDERED: Lactated Ringers 1000 ML Bag* 1,000 ML IV SCH (14:00)
[2019-08-28] MEDS ORDERED: Norepinephrine 16MCG/ML IVPRE* 4,000 MCG/250 ML BAG IV SCH (15:00)
[2019-08-28] MEDS: Gabapentin CAP(*) 300 MG PO SCH ×2 (20:31→22:14)
[2019-08-29] MEDS: Dexmedetomidine* 1,000 MCG in NS 0.9% 250 ML* 240 ML IV SCH ×3 (01:41→18:37)
[2019-08-29] MEDS: Gabapentin CAP(*) 300 MG PO SCH ×2 (02:22→20:59)
[2019-08-29] MEDS: Lactated Ringers 1000 ML Bag* 1,000 ML IV SCH ×3 (02:30→16:13)
[2019-08-29 04:50] LABS: Hematocrit 33 % (42-52); Hemoglobin 11.7 g/dL (14.0-18.0); Mean Corpuscular HGB Conc 35 g/dL (31-36); Mean Corpuscular Hemoglobin 35 pg (27-31); Mean Corpuscular Volume 99 fL (80-94); Mean Platelet Volume 8.3 fL (7.4-10.4); Platelet Count 71 10^3/uL (150-450); Red Blood Count 3.34 10^6 /uL (4.18-5.48); Red Cell Distribution Width 15 % (10-15); White Blood Count 4.4 10^3/uL (3.5-10.8)
[2019-08-29 04:53] LABS: INR 2.16 (0.82-1.09)
[2019-08-29 05:08] LABS: Albumin 3.4 g/dL (3.2-5.2); Albumin/Globulin Ratio 1.9 (1-3); BUN/Creatinine Ratio 8.7 (8-20); Calcium 8.9 mg/dL (8.6-10.3); EGFR African American 149.4 (>60); EGFR Non-African American 123.4 (>60); Globulin 1.8 g/dL (2-4); Phosphorus 1.5 mg/dL (2.5-5.0); Potassium 3.5 mmol/L (3.5-5.0); Total Protein 5.2 g/dL (6.4-8.9)
[2019-08-29 05:16] LABS: Magnesium 1.4 mg/dL (1.9-2.7)
[2019-08-29 05:51] LABS: Total Bilirubin 31.7 mg/dL (0.2-1.0)
[2019-08-29] MEDS ORDERED: Magnesium Sulfate 1 GM IV* 1 GM/100 ML BAG IV ONE (05:58)
[2019-08-29] MEDS: Albumin Human 25%* 25 GM/100 ML BTL IV SCH (06:14)
[2019-08-29] MEDS ORDERED: Potassium Phosphate IV* 15 MMOLE in NS 0.9% 250 ML* 250 ML IVPB ONE (06:30)
[2019-08-29] MEDS: Thiamine TAB* 100 MG TAB PO SCH (09:24)
[2019-08-29] MEDS: Folic Acid TAB* 1 MG PO SCH (09:24)
[2019-08-29] MEDS: PrednisoLONE 3 MG/ML ORAL.SOLU 15 MG/5 ML ORAL.SOLN PO SCH (09:24)
[2019-08-29] MEDS: Multivitamins/Minerals TAB PO SCH (09:24)
[2019-08-29] MEDS ORDERED: Potassium Chloride* LIQUID 20 MEQ/15 ML UDC PO ONE (13:30)
--- NOTE | 2019-08-29 13:30 | PN ---
Date of Service: 08/29/19 - HD 5 Critical Care Services: 44 yo M with history of signficant alcohol abuse and alcoholic hepatitis presented to ED on August 25, after friend convinced him he was turning yellow and he should come in. Per patient, jaundice has worsened since 07/29/2019 and he has been retaining fluid. On evaluation he was tachycardic to 104 but otherwise hemodynamically stable. Physical exam notable for jaundice but no other significant findings. Labs notable for Na 132, K 3.3. Tbili 19.4, ALK 217 , AST 246, ALT 64, ammonia 113. etOH 223 He was admitted to the medical service and GI consulted. Not a liver transplant candidate at this time secondary to ongoing drinking. 08/26: Pt reports feeling tremulous consistent with early stages of withdrawal. intermittently dizzing on standing. MELD score 28. On prednisolone for MDF> 32. Pancytopenic. Synthetic liver dysfunction noted. 08/27: More tremulous and unsteady. continues to have nonbloody diarrhea. US Liver with signficant portal hypertension, portal venous thrombosis of right portal vein, nonocclusive. Negative for hepatoma. Per GI no anticoagulation for nonocclusive portal vein thrombus until EGD done to assess for varices as he is a high risk for bleeding. 08/28: Overnight became more confused, delirious with hallucinations. Required 4 security guards to maintain safety. Transferred to ICU and started on Precedex gtt. NGT placed and started on TF 08/29: Agitation controlled on Precedex. Pulled NGT out; replaced. TF restarted. Vital Signs: Temp Pulse Resp BP SpO2 FiO2 99.2 F 73 15 121/74 95 08/29/19 11:51 08/29/19 12:00 08/29/19 12:00 08/29/19 12:00 08/29/19 12:00 Physical Exam: Gen: resting comfortably. jaundiced HEENT: NG in place Lungs: CTAB Cardiac: RRR Abdomen: soft, nondistended Extremities: warm, dry Neuro: arousable Fluid Balance (Past 24 Hours): I= O= Net Intake & Output 08/27/19 08/28/19 08/29/19 08/30/19 06:59 06:59 06:59 06:59 Intake Total 2913 5807 106 Output Total 1700 4580 1150 Balance 1213 1227 -1044 Weight 213 lb 9 oz Intake: IV Fluids 1743 4575 LR 950 4323 NS (0.9%) 400 Potassium 210 Precedex 183 252 IVPB 504 Potassium 504 Medicated IV 652 106 CC - Norepinephrine/ 92 Levophed Calcium Gluconate 58 GEN - Albumin 502 106 Oral 1170 0 Tube Feeding 76 Output: Urine 1700 2700 1150 Andres 1880 Other: Estimated Void Medium # Voids 2 Labs: Laboratory Results - last 24 hr 08/25/19 08/28/19 08/29/19 11:18 18:03 01:11 WBC RBC Hgb Hct MCV MCH MCHC RDW Plt Count MPV Hem Pathologist Commnt INR (Anticoag Therapy) Sodium Potassium Chloride Carbon Dioxide Anion Gap BUN Creatinine Est GFR ( Amer) Est GFR (Non-Af Amer) BUN/Creatinine Ratio Glucose POC Glucose (mg/dL) 94 92 Calcium Phosphorus Magnesium Total Bilirubin AST ALT Alkaline Phosphatase Ammonia Total Protein Albumin Globulin Albumin/Globulin Ratio 08/29/19 08/29/19 08/29/19 04:40 04:40 04:40 WBC 4.4 RBC 3.34 L Hgb 11.7 L Hct 33 L MCV 99 H MCH 35 H MCHC 35 RDW 15 Plt Count 71 L MPV 8.3 Hem Pathologist Commnt INR (Anticoag Therapy) Sodium 137 Potassium 3.5 Chloride 107 Carbon Dioxide 22 Anion Gap 8 BUN 6 Creatinine 0.69 Est GFR ( Amer) 149.4 Est GFR (Non-Af Amer) 123.4 BUN/Creatinine Ratio 8.7 Glucose 82 POC Glucose (mg/dL) Calcium 8.9 Phosphorus 1.5 L Magnesium 1.4 L Total Bilirubin 31.70 H* AST 109 H ALT 49 Alkaline Phosphatase 126 H Ammonia 97 H Total Protein 5.2 L Albumin 3.4 Globulin 1.8 L Albumin/Globulin Ratio 1.9 08/29/19 04:40 WBC RBC Hgb Hct MCV MCH MCHC RDW Plt Count MPV Hem Pathologist Commnt INR (Anticoag Therapy) 2.16 H Sodium Potassium Chloride Carbon Dioxide Anion Gap BUN Creatinine Est GFR ( Amer) Est GFR (Non-Af Amer) BUN/Creatinine Ratio Glucose POC Glucose (mg/dL) Calcium Phosphorus Magnesium Total Bilirubin AST ALT Alkaline Phosphatase Ammonia Total Protein Albumin Globulin Albumin/Globulin Ratio Studies: 08/[address]: cirrhotic liver with evidence of portal hypertension. Liver US: hematomegaly and increased echogenicity corresponding with history of hepatitis. no focal liver lesions identified. Abd US: No ascites Nutrition: started TF Impression: 44 yo M with signfiicant alcohol abuse history and alcoholic hepatitis admitted with recurrent alcoholic hepatitis and synthetic liver dysfunction. Transferred to ICU on 11/3 PM for delirium tremens. Plan: Hospital Diagnoses: #1: Alcoholic hepatitis #2: Delirium tremens #3: Synthetic liver dysfunction #4: Hypotension, medication induced Cardiovascular: (1) Sinus tachycardia due to delirium tremens, resolved; (2) Hypotension, medication induced -- HR 62-87 -- SBP 74-90 -- Telemetry -- Vasopressors Midodrine scheduled Levophed Home meds: None Pulmonary: No acute issues -- RR 12-27 -- sats 93-97 on RA -- CXR, 08/28: NAD Home meds: None Gastrointestinal: (1) Alcoholic hepatitis; (2) Synthetic liver dysfunction; (3 ) Hyperammonemia -- LFTs Tbili 31.70 from 31.10 ALK 126 from 163 AST 109 from 124 ALT 49 from 53 -- Ammonia 97 from 95, started lactulose -- diet: TF -- bowel regimen: PRN Docusate -- ulcer prophylaxis: Not indicated at this time Home meds: None Endocrine: No acute issues -- monitor BGs -- Prednisolone (per GI) Home meds: None Renal: (1) Hyponatremia, resolved; (2) Hypokalemia; (3) Hypocalcemia -- UOP: 191 ml/hr -- Cr 0.69 from 0.70 -- Lytes Na 137 from 136, follow trend K 3.5, replaced Ca 8.9 Mag 1.4, replaced Phos 1.5, replaced -- repeat labs ordered for 1500 -- IVF: LR @ 150 ml/hr; decrease to 100 ml/hr Home meds: None Infectious disease: (1) Hypothermia, resolved -- Tmax 99.2 -- WBC 4.4 from 4.8 -- Micro 08/28 MRSA negative -- ABX None Home meds: None Neurologic: (1) delirium tremens -- [facility] protocol -- Precedex gtt for agitation due to alcohol withdrawal -- PRN Benadryl -- PRN Haldol and Ativan for agitation -- Folic acid & Thiamine -- Nightly gabapentin Home meds: None Hematological: (1) Pancytopenia; (2) Coagulopathy secondary to synthetic liver dysfunction -- Hgb 11.7 from 11.9 -- Plt 71 from 77 -- Coags INR 2.16 from 2.20 -- DVT prophylaxis: SCDs Home meds: None Metabolic: No acute issues Home meds: None Other: No acute issues -- MVI Home meds: None Deep vein thrombosis prophylaxis: SCDs Dietary: not indicated at this time Condition: critical Prognosis: poor Code status: full Disposition: continue ICU Care Cumulative time spent in the care of this patient (excluding any procedure time) : at least 40 minutes. Patient care included clinical interview (with patient and/or family), bedside exam of the patient, review of labs, x-rays, and other ancillary data, coordination of (respiratory, nursing care, review of patient's records, discussion regarding patients management with involved consultants, primary physician, pharmacists, and other healthcare personnel (dietary, case management , physical/occupational therapy etc.) Critical Care Time: 40 min
[2019-08-29 16:05] LABS: BUN/Creatinine Ratio 9.3 (8-20); Calcium 8.9 mg/dL (8.6-10.3); EGFR African American 135.7 (>60); EGFR Non-African American 112.1 (>60); Phosphorus 5.3 mg/dL (2.5-5.0); Potassium 4.8 mmol/L (3.5-5.0)
[2019-08-29 16:13] LABS: Magnesium 1.7 mg/dL (1.9-2.7)
[2019-08-30] MEDS: Lactated Ringers 1000 ML Bag* 1,000 ML IV SCH ×2 (02:09→13:57)
[2019-08-30] MEDS: Dexmedetomidine* 1,000 MCG in NS 0.9% 250 ML* 240 ML IV SCH ×4 (03:26→22:58)
[2019-08-30 05:12] LABS: Hematocrit 32 % (42-52); Hemoglobin 11.3 g/dL (14.0-18.0); INR 2.54 (0.82-1.09); Mean Corpuscular HGB Conc 35 g/dL (31-36); Mean Corpuscular Hemoglobin 34 pg (27-31); Mean Corpuscular Volume 98 fL (80-94); Mean Platelet Volume 8.6 fL (7.4-10.4); Platelet Count 67 10^3/uL (150-450); Red Blood Count 3.28 10^6 /uL (4.18-5.48); Red Cell Distribution Width 15 % (10-15); White Blood Count 5.4 10^3/uL (3.5-10.8)
[2019-08-30 05:20] LABS: Albumin 2.8 g/dL (3.2-5.2); Albumin/Globulin Ratio 1.9 (1-3); BUN/Creatinine Ratio 12.9 (8-20); Calcium 8.2 mg/dL (8.6-10.3); EGFR African American 146.9 (>60); EGFR Non-African American 121.4 (>60); Globulin 1.5 g/dL (2-4); Phosphorus 2.6 mg/dL (2.5-5.0); Potassium 3.2 mmol/L (3.5-5.0); Total Protein 4.3 g/dL (6.4-8.9)
[2019-08-30 05:22] LABS: Magnesium 1.5 mg/dL (1.9-2.7)
[2019-08-30] MEDS: PrednisoLONE 3 MG/ML ORAL.SOLU 15 MG/5 ML ORAL.SOLN PO SCH (08:42)
[2019-08-30] MEDS: Multivitamins/Minerals TAB PO SCH (08:42)
[2019-08-30] MEDS: Folic Acid TAB* 1 MG PO SCH (08:42)
[2019-08-30] MEDS: Thiamine TAB* 100 MG TAB PO SCH (08:47)
[2019-08-30] MEDS ORDERED: Potassium EFFERVESCENT TAB* 25 MEQ TAB.EFF PO ONE (09:13)
[2019-08-30] MEDS ORDERED: Magnesium Sulfate 2 GM IV* 2 GM/50 ML BAG IVPB ONE (09:14)
--- NOTE | 2019-08-30 09:18 | PN ---
Date of Service: 08/30/19 - HD 5 Critical Care Services: 44 yo M with history of signficant alcohol abuse and alcoholic hepatitis presented to ED on August 25, after friend convinced him he was turning yellow and he should come in. Per patient, jaundice has worsened since 07/29/2019 and he has been retaining fluid. On evaluation he was tachycardic to 104 but otherwise hemodynamically stable. Physical exam notable for jaundice but no other significant findings. Labs notable for Na 132, K 3.3. Tbili 19.4, ALK 217 , AST 246, ALT 64, ammonia 113. etOH 223 He was admitted to the medical service and GI consulted. Not a liver transplant candidate at this time secondary to ongoing drinking. 08/26: Pt reports feeling tremulous consistent with early stages of withdrawal. intermittently dizzing on standing. MELD score 28. On prednisolone for MDF> 32. Pancytopenic. Synthetic liver dysfunction noted. 08/27: More tremulous and unsteady. continues to have nonbloody diarrhea. US Liver with signficant portal hypertension, portal venous thrombosis of right portal vein, nonocclusive. Negative for hepatoma. Per GI no anticoagulation for nonocclusive portal vein thrombus until EGD done to assess for varices as he is a high risk for bleeding. 08/28: Overnight became more confused, delirious with hallucinations. Required 4 security guards to maintain safety. Transferred to ICU and started on Precedex gtt. NGT placed and started on TF 08/29: Agitation controlled on Precedex. Pulled NGT out; replaced. TF restarted. 08/30: No overnight events Vital Signs: Temp Pulse Resp BP SpO2 FiO2 97.0 F 68 16 93/66 97 08/30/19 03:16 08/30/19 07:00 08/30/19 07:00 08/30/19 05:30 08/30/19 07:00 Physical Exam: Gen: resting comfortably. jaundiced HEENT: NG in place Lungs: CTAB Cardiac: RRR Abdomen: soft, NTND Extremities: warm, dry Neuro: awake, alert. following commands. not agitated Fluid Balance (Past 24 Hours): I= O= Net Intake & Output 08/28/19 08/29/19 08/30/19 08/31/19 06:59 06:59 06:59 06:59 Intake Total 2913 5807 3400 Output Total 1700 4580 3120 Balance 1213 1227 280 Weight 213 lb 9 oz 215 lb 2 oz Intake: IV Fluids 1743 4575 2571 LR 950 4323 2571 NS (0.9%) 400 Potassium 210 Precedex 183 252 IVPB 504 360 LR 110 Potassium 504 250 Medicated IV 652 419 CC - Dexmedetomidine/ 313 Precedex CC - Norepinephrine/ 92 Levophed Calcium Gluconate 58 GEN - Albumin 502 106 Oral 1170 0 0 Tube Feeding 76 50 Output: Urine 1700 2700 1310 Andres 1880 1810 Other: Estimated Void Medium Large Date of Last Bowel 08/29/19 Movement # Bowel Movements 1 Estimated Stool Amount Medium # Voids 2 1 Labs: Laboratory Results - last 24 hr 08/29/19 08/29/19 08/29/19 13:09 15:10 23:52 WBC RBC Hgb Hct MCV MCH MCHC RDW Plt Count MPV INR (Anticoag Therapy) Sodium 134 L Potassium 4.8 Chloride 103 Carbon Dioxide 23 Anion Gap 8 BUN 7 Creatinine 0.75 Est GFR ( Amer) 135.7 Est GFR (Non-Af Amer) 112.1 BUN/Creatinine Ratio 9.3 Glucose 122 H POC Glucose (mg/dL) 123 H 147 H Calcium 8.9 Phosphorus 5.3 H Magnesium 1.7 L Total Bilirubin AST ALT Alkaline Phosphatase Ammonia Total Protein Albumin Globulin Albumin/Globulin Ratio 08/30/19 08/30/19 08/30/19 04:44 04:44 04:44 WBC 5.4 RBC 3.28 L Hgb 11.3 L Hct 32 L MCV 98 H MCH 34 H MCHC 35 RDW 15 Plt Count 67 L MPV 8.6 INR (Anticoag Therapy) Sodium 135 Potassium 3.2 L D Chloride 104 Carbon Dioxide 23 Anion Gap 8 BUN 9 Creatinine 0.70 Est GFR ( Amer) 146.9 Est GFR (Non-Af Amer) 121.4 BUN/Creatinine Ratio 12.9 Glucose 110 H POC Glucose (mg/dL) Calcium 8.2 L Phosphorus 2.6 Magnesium 1.5 L Total Bilirubin 26.00 H* D AST 74 H ALT 38 Alkaline Phosphatase 125 H Ammonia 94 H Total Protein 4.3 L Albumin 2.8 L Globulin 1.5 L Albumin/Globulin Ratio 1.9 08/30/19 04:44 WBC RBC Hgb Hct MCV MCH MCHC RDW Plt Count MPV INR (Anticoag Therapy) 2.54 H Sodium Potassium Chloride Carbon Dioxide Anion Gap BUN Creatinine Est GFR ( Amer) Est GFR (Non-Af Amer) BUN/Creatinine Ratio Glucose POC Glucose (mg/dL) Calcium Phosphorus Magnesium Total Bilirubin AST ALT Alkaline Phosphatase Ammonia Total Protein Albumin Globulin Albumin/Globulin Ratio Studies: 08/[address]: cirrhotic liver with evidence of portal hypertension. Liver US: hematomegaly and increased echogenicity corresponding with history of hepatitis. no focal liver lesions identified. Abd US: No ascites Nutrition: TF Impression: 44 yo M with signfiicant alcohol abuse history and alcoholic hepatitis admitted with recurrent alcoholic hepatitis and synthetic liver dysfunction. Transferred to ICU on 11 PM for delirium tremens. Plan: Hospital Diagnoses: #1: Alcoholic hepatitis #2: Delirium tremens #3: Synthetic liver dysfunction #4: Hypotension, medication induced Cardiovascular: (1) Sinus tachycardia due to delirium tremens, resolved; (2) Hypotension, medication induced -- HR 61-83 -- SBP 78-133 -- Telemetry -- Vasopressors Midodrine scheduled Home meds: None Pulmonary: No acute issues -- RR 13-26 -- sats 93-98 on RA -- CXR, 08/28: NAD Home meds: None Gastrointestinal: (1) Alcoholic hepatitis; (2) Synthetic liver dysfunction; (3 ) Hyperammonemia -- LFTs Tbili 26 from 31.70 ALK 125 from 126 AST 74 from 109 ALT 38 -- Ammonia 94 from 97, on lactulose -- diet: TF -- bowel regimen: lactulose -- ulcer prophylaxis: Not indicated at this time Home meds: None Endocrine: No acute issues -- monitor BGs -- Prednisolone (per GI) Home meds: None Renal: (1) Hyponatremia, resolved; (2) Hypokalemia; (3) Hypocalcemia; (4) Hypomagnesemia -- UOP: 130 ml/hr -- Cr 0.70 from 0.69 -- Lytes Na 135 from 137, follow trend K 3.2, replaced Ca 8.2, replaced Mag 1.5, replaced Phos 2.6 -- repeat labs ordered for 1500 -- IVF: LR @ 100 ml/hr; decrease to 50 ml/hr Home meds: None Infectious disease: (1) Hypothermia, resolved -- Tmax 99.8 -- WBC 5.4 from 4.4 -- Micro 08/28 MRSA negative -- ABX None Home meds: None Neurologic: (1) delirium tremens -- [facility] protocol -- Precedex gtt for agitation due to alcohol withdrawal -- PRN Haldol and Ativan for agitation -- Folic acid & Thiamine -- Nightly gabapentin Home meds: None Hematological: (1) Pancytopenia; (2) Coagulopathy secondary to synthetic liver dysfunction -- Hgb 11.3 from 11.7 -- Plt 67 from 71 -- Coags INR 2.54 from 2.16 -- DVT prophylaxis: SCDs Home meds: None Metabolic: No acute issues Home meds: None Other: No acute issues -- MVI Home meds: None Deep vein thrombosis prophylaxis: SCDs Dietary: not indicated at this time Condition: critical Prognosis: poor Code status: full Disposition: continue ICU Care Cumulative time spent in the care of this patient (excluding any procedure time) : at least 40 minutes. Patient care included clinical interview (with patient and/or family), bedside exam of the patient, review of labs, x-rays, and other ancillary data, coordination of (respiratory, nursing care, review of patient's records, discussion regarding patients management with involved consultants, primary physician, pharmacists, and other healthcare personnel (dietary, case management , physical/occupational therapy etc.) Critical Care Time: 40 min
[2019-08-30] MEDS ORDERED: Calcium Gluconate INJ* 1 GM in NS 0.9% 50 ML* 50 ML IVPB ONE (10:00)
[2019-08-30] MEDS: Multivitamins ADULT w/MIN LIQ* 15 ML UDC PO SCH (10:30)
[2019-08-30] MEDS: KCL 20 MEQ/100 ML IVPREMIX* 20 MEQ/100 ML BAG IV SCH ×2 (10:41→14:35)
[2019-08-30 17:50] LABS: BUN/Creatinine Ratio 13.6 (8-20); EGFR African American 124.1 (>60); EGFR Non-African American 102.6 (>60); Magnesium 2.1 mg/dL (1.9-2.7); Phosphorus 2.7 mg/dL (2.5-5.0); Potassium 4.3 mmol/L (3.5-5.0)
[2019-08-30] MEDS: Gabapentin CAP(*) 300 MG PO SCH (20:37)
[2019-08-30] MEDS: LORazepam INJ* 2 MG/ML 1 ML VIAL IV PUSH PRN (23:04)
[2019-08-31 04:30] LABS: INR 2.33 (0.82-1.09)
[2019-08-31 04:33] LABS: Hematocrit 36 % (42-52); Hemoglobin 12.4 g/dL (14.0-18.0); Mean Corpuscular HGB Conc 34 g/dL (31-36); Mean Corpuscular Hemoglobin 34 pg (27-31); Mean Corpuscular Volume 99 fL (80-94); Mean Platelet Volume 8.8 fL (7.4-10.4); Platelet Count 90 10^3/uL (150-450); Red Blood Count 3.62 10^6 /uL (4.18-5.48); Red Cell Distribution Width 16 % (10-15); White Blood Count 7.1 10^3/uL (3.5-10.8)
[2019-08-31 04:42] LABS: Albumin/Globulin Ratio 1.6 (1-3); Calcium 8.5 mg/dL (8.6-10.3); EGFR African American 131.6 (>60); EGFR Non-African American 108.8 (>60); Globulin 1.9 g/dL (2-4); Phosphorus 2.8 mg/dL (2.5-5.0); Potassium 3.7 mmol/L (3.5-5.0); Total Protein 4.9 g/dL (6.4-8.9)
[2019-08-31 04:48] LABS: Magnesium 1.8 mg/dL (1.9-2.7); Total Bilirubin 28.9 mg/dL (0.2-1.0)
[2019-08-31] MEDS ORDERED: Magnesium Sulfate 1 GM IV* 1 GM/100 ML BAG IV ONE (05:21)
[2019-08-31] MEDS: Dexmedetomidine* 1,000 MCG in NS 0.9% 250 ML* 240 ML IV SCH ×2 (06:17→13:47)
[2019-08-31] MEDS: Multivitamins ADULT w/MIN LIQ* 15 ML UDC PO SCH (08:52)
[2019-08-31] MEDS: Folic Acid TAB* 1 MG PO SCH (08:52)
[2019-08-31] MEDS: Thiamine TAB* 100 MG TAB PO SCH (08:52)
[2019-08-31] MEDS: PrednisoLONE 3 MG/ML ORAL.SOLU 15 MG/5 ML ORAL.SOLN PO SCH (08:53)
[2019-08-31] MEDS: Lactated Ringers 1000 ML Bag* 1,000 ML IV SCH (08:59)
--- NOTE | 2019-08-31 09:46 | PN ---
Date of Service: 08/31/19 - HD 6 Critical Care Services: 44 yo M with history of signficant alcohol abuse and alcoholic hepatitis presented to ED on August 25, after friend convinced him he was turning yellow and he should come in. Per patient, jaundice has worsened since 07/29/2019 and he has been retaining fluid. On evaluation he was tachycardic to 104 but otherwise hemodynamically stable. Physical exam notable for jaundice but no other significant findings. Labs notable for Na 132, K 3.3. Tbili 19.4, ALK 217 , AST 246, ALT 64, ammonia 113. etOH 223 He was admitted to the medical service and GI consulted. Not a liver transplant candidate at this time secondary to ongoing drinking. 08/26: Pt reports feeling tremulous consistent with early stages of withdrawal. intermittently dizzing on standing. MELD score 28. On prednisolone for MDF> 32. Pancytopenic. Synthetic liver dysfunction noted. 08/27: More tremulous and unsteady. continues to have nonbloody diarrhea. US Liver with signficant portal hypertension, portal venous thrombosis of right portal vein, nonocclusive. Negative for hepatoma. Per GI no anticoagulation for nonocclusive portal vein thrombus until EGD done to assess for varices as he is a high risk for bleeding. 08/28: Overnight became more confused, delirious with hallucinations. Required 4 security guards to maintain safety. Transferred to ICU and started on Precedex gtt. NGT placed and started on TF 08/29: Agitation controlled on Precedex. Pulled NGT out; replaced. TF restarted. 08/30: Alert, still confused but less agitated. Impulsive. Remains on precedex. Passed swallow eval and started on diet. 08/31: No overnight events Vital Signs: Temp Pulse Resp BP SpO2 FiO2 96.9 F 60 15 120/72 98 08/31/19 08:00 08/31/19 09:01 08/31/19 09:01 08/31/19 09:01 08/31/19 09:01 Physical Exam: Gen: sleeping comfortably. jaundiced HEENT: intact Lungs: nonlabored Cardiac: RRR Abdomen: soft, nondistended Extremities: warm, dry Neuro: sleeping Fluid Balance (Past 24 Hours): I= O= Net Intake & Output 08/29/19 08/30/19 08/31/1909/01/19 06:59 06:59 06:59 06:59 Intake Total 5807 3400 3017 Output Total 4580 3120 2060 700 Balance 1227 280 957 -700 Weight 213 lb 9 oz 215 lb 2 oz 214 lb 2 oz Intake: IV Fluids 4575 2571 75 LR 4323 2571 NS (0.9%) 75 Precedex 252 IVPB 767 682 7065 Calcium Gluconate 60 LR 110 1431 Mag 50 Potassium 504 250 200 Medicated IV 652 419 481 CC - Dexmedetomidine/ 313 481 Precedex CC - Norepinephrine/ 92 Levophed Calcium Gluconate 58 GEN - Albumin 502 106 Oral 0 0 720 Tube Feeding 76 50 Output: Urine 2700 1310 1560 700 Andres 1880 1810 Liquid Stool 500 Other: Estimated Void Large Medium Date of Last Bowel 08/29/19 Movement # Bowel Movements 1 Estimated Stool Amount Medium Large # Voids 1 Labs: Laboratory Results - last 24 hr 08/29/19 08/30/19 08/31/19 18:11 17:26 04:00 WBC RBC Hgb Hct MCV MCH MCHC RDW Plt Count MPV INR (Anticoag Therapy) Sodium 132 L Potassium 4.3 Chloride 101 Carbon Dioxide 23 Anion Gap 8 BUN 11 Creatinine 0.81 Est GFR ( Amer) 124.1 Est GFR (Non-Af Amer) 102.6 BUN/Creatinine Ratio 13.6 Glucose 146 H POC Glucose (mg/dL) 143 H Calcium 9.0 Phosphorus 2.7 Magnesium 2.1 Total Bilirubin AST ALT Alkaline Phosphatase Ammonia 88 H Total Protein Albumin Globulin Albumin/Globulin Ratio 08/31/19 08/31/19 08/31/19 04:00 04:00 04:20 WBC 7.1 RBC 3.62 L Hgb 12.4 L Hct 36 L MCV 99 H MCH 34 H MCHC 34 RDW 16 H Plt Count 90 L MPV 8.8 INR (Anticoag Therapy) 2.33 H Sodium 133 L Potassium 3.7 Chloride 103 Carbon Dioxide 22 Anion Gap 8 BUN 10 Creatinine 0.77 Est GFR ( Amer) 131.6 Est GFR (Non-Af Amer) 108.8 BUN/Creatinine Ratio 13.0 Glucose 96 POC Glucose (mg/dL) Calcium 8.5 L Phosphorus 2.8 Magnesium 1.8 L Total Bilirubin 28.90 H* D AST 76 H ALT 44 Alkaline Phosphatase 134 H Ammonia Total Protein 4.9 L Albumin 3.0 L Globulin 1.9 L Albumin/Globulin Ratio 1.6 Studies: 08/31 CXR: NAD 08/28 CXR: NAD 08/[address]: cirrhotic liver with evidence of portal hypertension. Liver US: hematomegaly and increased echogenicity corresponding with history of hepatitis. no focal liver lesions identified. Abd US: No ascites Nutrition: Regular diet Impression: 44 yo M with signfiicant alcohol abuse history and alcoholic hepatitis admitted with recurrent alcoholic hepatitis and synthetic liver dysfunction. Transferred to ICU on 08/27 PM for delirium tremens. Plan: Hospital Diagnoses: #1: Alcoholic hepatitis #2: Delirium tremens #3: Synthetic liver dysfunction #4: Hypotension, medication induced Cardiovascular: (1) Sinus tachycardia due to delirium tremens, resolved; (2) Hypotension, medication induced -- HR 53-81 -- SBP 92-166 -- Telemetry -- Vasopressors Midodrine scheduled Home meds: None Pulmonary: No acute issues -- RR 12-28 -- sats 93-98 on RA -- CXR, 08/31: NAD Home meds: None Gastrointestinal: (1) Alcoholic hepatitis; (2) Synthetic liver dysfunction; (3 ) Hyperammonemia -- LFTs Tbili 28.9 from 26 from 31.70 ALK 134 from 125 AST 76 from 74 ALT 44 -- Ammonia 88 from 94, on lactulose -- diet: general -- bowel regimen: lactulose -- ulcer prophylaxis: Not indicated at this time Home meds: None Endocrine: No acute issues -- monitor BGs -- Prednisolone (per GI) Home meds: None Renal: (1) Hyponatremia; (2) Hypokalemia, resolved; (3) Hypocalcemia; (4) Hypomagnesemia -- UOP: 80 ml/hr -- Cr 0.70 from 0.69 -- Lytes Na 133 form 135, follow trend K 3.7 Ca 8.5, replaced Mag 1.8, replaced Phos 2.6 -- IVF: HL Home meds: None Infectious disease: (1) Hypothermia, resolved -- Tmax 99.2 -- WBC 7.1 from 5.4 -- Micro 08/28 MRSA negative -- ABX None Home meds: None Neurologic: (1) delirium tremens -- Precedex gtt for agitation due to alcohol withdrawal, start scheduled Librium and wean off Precedex -- PRN Haldol and Ativan for agitation -- Folic acid & Thiamine -- Nightly gabapentin -- PT Home meds: None Hematological: (1) Pancytopenia; (2) Coagulopathy secondary to synthetic liver dysfunction -- Hgb 12.4 from 11.3 -- Plt 90 from 67 -- Coags INR 2.33 from 2.54 -- DVT prophylaxis: SCDs Home meds: None Metabolic: No acute issues Home meds: None Other: No acute issues -- MVI Home meds: None Deep vein thrombosis prophylaxis: SCDs Dietary: not indicated at this time Condition: critical Prognosis: poor Code status: full Disposition: continue ICU Care Cumulative time spent in the care of this patient (excluding any procedure time) : at least 40 minutes. Patient care included clinical interview (with patient and/or family), bedside exam of the patient, review of labs, x-rays, and other ancillary data, coordination of (respiratory, nursing care, review of patient's records, discussion regarding patients management with involved consultants, primary physician, pharmacists, and other healthcare personnel (dietary, case management , physical/occupational therapy etc.) Critical Care Time: 40 min
[2019-08-31] MEDS: chlordiazePOXIDE CAP* 5 MG PO SCH ×3 (09:54→20:31)
[2019-08-31] MEDS ORDERED: Calcium Gluconate INJ* 1 GM in NS 0.9% 50 ML* 50 ML IVPB ONE (12:30)
[2019-08-31] MEDS: Gabapentin CAP(*) 300 MG PO SCH (20:31)
[2019-09-01 04:38] LABS: Hematocrit 37 % (42-52); Hemoglobin 12.9 g/dL (14.0-18.0); Mean Corpuscular HGB Conc 35 g/dL (31-36); Mean Corpuscular Hemoglobin 35 pg (27-31); Mean Corpuscular Volume 100 fL (80-94); Mean Platelet Volume 9.2 fL (7.4-10.4); Platelet Count 121 10^3/uL (150-450); Red Blood Count 3.67 10^6 /uL (4.18-5.48); Red Cell Distribution Width 16 % (10-15); White Blood Count 10.8 10^3/uL (3.5-10.8)
[2019-09-01 04:48] LABS: INR 2.16 (0.82-1.09)
[2019-09-01 04:55] LABS: Albumin 3.2 g/dL (3.2-5.2); Albumin/Globulin Ratio 1.5 (1-3); BUN/Creatinine Ratio 18.3 (8-20); Calcium 8.6 mg/dL (8.6-10.3); EGFR African American 105.8 (>60); EGFR Non-African American 87.5 (>60); Globulin 2.2 g/dL (2-4); Potassium 3.4 mmol/L (3.5-5.0); Total Protein 5.4 g/dL (6.4-8.9)
[2019-09-01] MEDS: Dexmedetomidine* 1,000 MCG in NS 0.9% 250 ML* 240 ML IV SCH (05:15)
[2019-09-01 06:03] LABS: Total Bilirubin 34.6 mg/dL (0.2-1.0)
[2019-09-01] MEDS ORDERED: Potassium Chlor TAB* 20 MEQ TAB.ER PO ONE (06:15)
[2019-09-01] MEDS: Multivitamins/Minerals TAB PO SCH (08:07)
[2019-09-01] MEDS: chlordiazePOXIDE CAP* 5 MG PO SCH ×3 (08:07→20:01)
[2019-09-01] MEDS: PrednisoLONE 3 MG/ML ORAL.SOLU 15 MG/5 ML ORAL.SOLN PO SCH (08:07)
[2019-09-01] MEDS: Thiamine TAB* 100 MG TAB PO SCH (08:07)
[2019-09-01] MEDS: Folic Acid TAB* 1 MG PO SCH (08:07)
[2019-09-01] MEDS ORDERED: Potassium Chlor TAB* 10 MEQ TAB.ER PO ONE (08:46)
--- NOTE | 2019-09-01 08:50 | PN ---
Date of Service: 09/01/19 - HD 7 Critical Care Services: 44 yo M with history of signficant alcohol abuse and alcoholic hepatitis presented to ED on August 25, after friend convinced him he was turning yellow and he should come in. Per patient, jaundice has worsened since 07/29/2019 and he has been retaining fluid. On evaluation he was tachycardic to 104 but otherwise hemodynamically stable. Physical exam notable for jaundice but no other significant findings. Labs notable for Na 132, K 3.3. Tbili 19.4, ALK 217 , AST 246, ALT 64, ammonia 113. etOH 223 He was admitted to the medical service and GI consulted. Not a liver transplant candidate at this time secondary to ongoing drinking. 08/26: Pt reports feeling tremulous consistent with early stages of withdrawal. intermittently dizzing on standing. MELD score 28. On prednisolone for MDF> 32. Pancytopenic. Synthetic liver dysfunction noted. 08/27: More tremulous and unsteady. continues to have nonbloody diarrhea. US Liver with signficant portal hypertension, portal venous thrombosis of right portal vein, nonocclusive. Negative for hepatoma. Per GI no anticoagulation for nonocclusive portal vein thrombus until EGD done to assess for varices as he is a high risk for bleeding. 08/28: Overnight became more confused, delirious with hallucinations. Required 4 security guards to maintain safety. Transferred to ICU and started on Precedex gtt. NGT placed and started on TF 08/29: Agitation controlled on Precedex. Pulled NGT out; replaced. TF restarted. 08/30: Alert, still confused but less agitated. Impulsive. Remains on precedex. Passed swallow eval and started on diet. 08/31: Started on Librium 09/01: Weaned off Precedex Vital Signs: Temp Pulse Resp BP SpO2 FiO2 99.2 F 79 17 80/41 98 09/01/19 07:13 09/01/19 08:06 09/01/19 08:07 09/01/19 08:06 09/01/19 08:06 Physical Exam: Gen: resting comfortably HEENT: intact Lungs: nonlabored Cardiac: RRR Abdomen: soft, nondistended Extremities: warm, dry Neuro: sleeping Fluid Balance (Past 24 Hours): I= O= Net Intake & Output 11/04/1208/31/19 09/01/19 09/02/19 06:59 06:59 06:59 06:59 Intake Total 3400 3017 2383 Output Total 3120 2060 2380 Balance 280 957 3 Weight 215 lb 2 oz 214 lb 2 oz 212 lb 9 oz Intake: IV Fluids 2571 75 408 LR 2571 Mag 100 NS (0.9%) 75 308 IVPB 360 1741 122 Calcium Gluconate 60 86 LR 110 1431 Mag 50 Potassium 250 200 Precedex 36 Medicated IV 419 481 173 CC - Dexmedetomidine/ 313 481 173 Precedex GEN - Albumin 106 Oral 0 720 1680 Tube Feeding 50 Output: Urine 1310 1560 2380 Andres 1810 Liquid Stool 500 Other: Estimated Void Large Medium Date of Last Bowel 08/29/19 Movement # Bowel Movements 1 1 Estimated Stool Amount Medium Large Large # Voids 1 Labs: Laboratory Results - last 24 hr 09/01/19 09/01/19 09/01/19 04:25 04:25 04:25 WBC 10.8 RBC 3.67 L Hgb 12.9 L Hct 37 L MCV 100 H MCH 35 H MCHC 35 RDW 16 H Plt Count 121 L MPV 9.2 INR (Anticoag Therapy) Sodium 132 L Potassium 3.4 L Chloride 101 Carbon Dioxide 22 Anion Gap 9 BUN 17 Creatinine 0.93 Est GFR ( Amer) 105.8 Est GFR (Non-Af Amer) 87.5 BUN/Creatinine Ratio 18.3 Glucose 88 Calcium 8.6 Phosphorus 3.0 Magnesium 2.0 Total Bilirubin 34.60 H* D AST 76 H ALT 51 Alkaline Phosphatase 157 H Ammonia 53 Total Protein 5.4 L Albumin 3.2 Globulin 2.2 Albumin/Globulin Ratio 1.5 09/01/19 04:25 WBC RBC Hgb Hct MCV MCH MCHC RDW Plt Count MPV INR (Anticoag Therapy) 2.16 H Sodium Potassium Chloride Carbon Dioxide Anion Gap BUN Creatinine Est GFR ( Amer) Est GFR (Non-Af Amer) BUN/Creatinine Ratio Glucose Calcium Phosphorus Magnesium Total Bilirubin AST ALT Alkaline Phosphatase Ammonia Total Protein Albumin Globulin Albumin/Globulin Ratio Studies: 08/31 CXR: NAD 08/28 CXR: NAD 08/[address]: cirrhotic liver with evidence of portal hypertension. Liver US: hematomegaly and increased echogenicity corresponding with history of hepatitis. no focal liver lesions identified. Abd US: No ascites Nutrition: Regular diet Impression: 44 yo M with signfiicant alcohol abuse history and alcoholic hepatitis admitted with recurrent alcoholic hepatitis and synthetic liver dysfunction. Transferred to ICU on 11 PM for delirium tremens. Plan: Hospital Diagnoses: #1: Alcoholic hepatitis #2: Delirium tremens #3: Synthetic liver dysfunction #4: Hypotension, medication induced Cardiovascular: (1) Sinus tachycardia due to delirium tremens, resolved; (2) Hypotension, medication induced -- HR 55-86 -- SBP 80-120 -- Telemetry -- Vasopressors Midodrine scheduled, increased to Q6H Home meds: None Pulmonary: No acute issues -- RR 12-24 -- sats 96-100 on RA -- CXR, 08/31: NAD Home meds: None Gastrointestinal: (1) Alcoholic hepatitis; (2) Synthetic liver dysfunction; (3 ) Hyperammonemia, improving on Lactulose -- LFTs Tbili 34.60 from 28.9 ALK 157 from 134 AST 76 from 76 ALT 51 -- Ammonia 53 from 88, on lactulose -- diet: general -- bowel regimen: lactulose -- ulcer prophylaxis: Not indicated at this time Home meds: None Endocrine: No acute issues -- monitor BGs -- Prednisolone (per GI) Home meds: None Renal: (1) Hyponatremia; (2) Hypokalemia; (3) Hypocalcemia, resolved; (4) Hypomagnesemia, resolved -- UOP: 80 ml/hr -- Cr 0.70 from 0.69 -- Lytes Na 132 from 133, follow trend K 3.4, replaced Ca 8.6 Mag 2.0 Phos 3.0 -- IVF: HL Home meds: None Infectious disease: (1) Hypothermia, resolved -- Tmax 99.5 -- WBC 10.8 from 7.1 -- Micro 08/28 MRSA negative -- ABX None Home meds: None Neurologic: (1) delirium tremens, resolving -- Librium -- PRN Haldol and Ativan for agitation -- Folic acid & Thiamine -- Nightly gabapentin -- PT Home meds: None Hematological: (1) Pancytopenia; (2) Coagulopathy secondary to synthetic liver dysfunction -- Hgb 12.9 from 12.4 -- Plt 121 from 90 -- Coags INR 2.16 from 2.33 -- DVT prophylaxis: SCDs Home meds: None Metabolic: No acute issues Home meds: None Other: No acute issues -- MVI Home meds: None Deep vein thrombosis prophylaxis: SCDs Dietary: not indicated at this time Condition: serious Prognosis: poor Code status: full Disposition: transfer to floor Cumulative time spent in the care of this patient (excluding any procedure time) : at least 40 minutes. Patient care included clinical interview (with patient and/or family), bedside exam of the patient, review of labs, x-rays, and other ancillary data, coordination of (respiratory, nursing care, review of patient's records, discussion regarding patients management with involved consultants, primary physician, pharmacists, and other healthcare personnel (dietary, case management , physical/occupational therapy etc.) Critical Care Time: None
[2019-09-01] MEDS: Gabapentin CAP(*) 300 MG PO SCH (20:01)
[2019-09-02] MEDS: LORazepam INJ* 2 MG/ML 1 ML VIAL IV PUSH PRN ×3 (03:01→20:36)
[2019-09-02 05:25] LABS: Hematocrit 35 % (42-52); Hemoglobin 12.1 g/dL (14.0-18.0); Mean Corpuscular HGB Conc 35 g/dL (31-36); Mean Corpuscular Hemoglobin 35 pg (27-31); Mean Corpuscular Volume 100 fL (80-94); Mean Platelet Volume 8.8 fL (7.4-10.4); Platelet Count 116 10^3/uL (150-450); Red Blood Count 3.47 10^6 /uL (4.18-5.48); Red Cell Distribution Width 17 % (10-15); White Blood Count 9.2 10^3/uL (3.5-10.8)
[2019-09-02 05:31] LABS: INR 2.03 (0.82-1.09)
[2019-09-02 05:45] LABS: Albumin 3.2 g/dL (3.2-5.2); Albumin/Globulin Ratio 1.6 (1-3); BUN/Creatinine Ratio 18.6 (8-20); Calcium 8.7 mg/dL (8.6-10.3); EGFR African American 80.4 (>60); EGFR Non-African American 66.5 (>60); Phosphorus 2.8 mg/dL (2.5-5.0); Potassium 3.4 mmol/L (3.5-5.0); Total Protein 5.2 g/dL (6.4-8.9)
[2019-09-02 06:03] LABS: Total Bilirubin 35.1 mg/dL (0.2-1.0)
[2019-09-02] MEDS: PrednisoLONE 3 MG/ML ORAL.SOLU 15 MG/5 ML ORAL.SOLN PO SCH (08:53)
[2019-09-02] MEDS: Folic Acid TAB* 1 MG PO SCH (08:54)
[2019-09-02] MEDS: chlordiazePOXIDE CAP* 5 MG PO SCH ×2 (08:55→19:47)
[2019-09-02] MEDS: Thiamine TAB* 100 MG TAB PO SCH (08:56)
[2019-09-02] MEDS: Multivitamins/Minerals TAB PO SCH (08:56)
[2019-09-02] MEDS ORDERED: Potassium Chlor TAB* 20 MEQ TAB.ER PO ONE (09:42)
--- NOTE | 2019-09-02 16:25 | PN ---
Subjective Date of Service: 09/02/19 Interval History: Transferred from the ICU yesterday. Pt with intermittent agitation and hallucinations, but redirectable and improves with IV benzos. Pt states he is aware he is hallucinating. Today he is mostly concerned with getting his insurance set up. Denies pain. Has some anxiety and tremor. Denies headache, abdominal pain, n/v/d/c. Objective Active Medications: Chlordiazepoxide (Librium Cap*) 5 mg PO BID [facility] Dextrose (Dextrose 50% Vial 50 Ml*) 25 ml IV PUSH .FOR FS < 60 - SS PRN PRN Reason: FS < 60 Folic Acid (Folvite Tab*) 1 mg PO DAILY [facility] Last Admin: 09/02/19 08:54 Dose: 1 mg Gabapentin (Neurontin Cap(*)) 300 mg PO BEDTIME [facility] Last Admin: 09/01/19 20:01 Dose: 300 mg Lactulose (Lactulose*) 30 ml PO DAILY [facility] Last Admin: 09/02/19 08:53 Dose: 30 ml Lorazepam (Ativan Inj*) 2 mg IV PUSH Q6H PRN PRN Reason: AGITATION Last Admin: 09/02/19 11:59 Dose: 2 mg Midodrine (Midodrine) 5 mg PO TID PRN; Protocol PRN Reason: give if SBP < 110 Miscellaneous (Ativan Pyxis Foley) 1 ea N/A .ATIVAN IV FOLEY PRN PRN Reason: PYXIS FOLEY Multivitamins/Minerals (Theragran/Minerals Tab*) 1 tab PO DAILY [facility] Last Admin: 09/02/19 08:56 Dose: 1 tab Prednisolone Sodium Phosphate (Prednisolone 3 Mg/Ml 5 Ml Oral.Solution*) 40 mg PO DAILY [facility] Last Admin: 09/02/19 08:53 Dose: 40 mg Thiamine HCl (Vitamin B-1 Tab*) 100 mg PO DAILY [facility] Last Admin: 09/02/19 08:56 Dose: 100 mg Vital Signs - 8 hr 09/02/19 09/02/19 09/02/19 08:55 11:13 11:31 Temperature 98 F Pulse Rate 99 Respiratory 16 18 18 Rate Blood Pressure 121/70 (mmHg) O2 Sat by Pulse 100 Oximetry 09/02/19 09/02/19 09/02/19 11:59 13:55 15:30 Temperature 97.9 F Pulse Rate 93 Respiratory 16 16 20 Rate Blood Pressure 135/73 (mmHg) O2 Sat by Pulse 100 Oximetry Oxygen Devices in Use Now: None Appearance: markedly jaundiced, sitting in chair, alert and interactive Eyes: - - scleral icterus Ears/Nose/Mouth/Throat: Clear Oropharnyx, Mucous Membranes Moist, - - no tongue fasciculations Neck: NL Appearance and Movements; NL JVP, Trachea Midline Respiratory: Symmetrical Chest Expansion and Respiratory Effort, Clear to Auscultation Cardiovascular: NL Sounds; No Murmurs; No JVD, RRR Abdominal: NL Sounds; No Tenderness; No Distention, No Hepatosplenomegaly - no RUQ tenderness Extremities: No Edema Skin: No Rash or Ulcers Neurological: - - AOx3 (although said "[facility]), +intention tremor b/l Result Diagrams: 09/02/19 04:56 09/02/19 04:56 Microbiology and Other Data: Microbiology 08/28/19 07:38 Nasal Screen MRSA (PCR) - Final Nasal Mrsa Not Detected Assess/Plan/Problems-Billing Assessment: 44M with severe alcohol use disorder and alcoholic hepatitis, here with recurrent alcoholic hepatitis and alcohol withdrawal, now with likely DT. - Patient Problems (1) AH (alcoholic hepatitis) Comment: MELD score 30. MDF > 32. Complicated by pancytopenia, synthetic liver dysfunctuion. Liver US shows no hepatoma. Possible hepatic encephalopathy. - Appreciate GI consult; Continue prednisolone for MDF>32. - Needs strict abstinence, even without has high risk of mortality. - cont lactulose, titrate to 2-3 BM/day (2) ETOH abuse Comment: Now with likely delirium tremens. - cont on PO long acting benzo with taper - cont lorazepam IV prn anxiety/agitation - cont folic acid, thiamine (3) Portal vein thrombosis Comment: Significant portal HTN, Equivocal findings consistent with portal venous thrombosis - Will need screening endoscopy for varices before discharge - Cannot put on AC until varices ruled out (4) Hypotension Comment: Likely due to Precedex drip. - cont midodrine started in ICU, switch to PRN (5) DVT prophylaxis Comment: - SCDs only in setting of thrombocytopenia and elevated INR. (6) Full code status Status and Disposition: Inpatient for management of Acute Hepatitis and Likely Alcohol Withdrawal.
[2019-09-02] MEDS: Gabapentin CAP(*) 300 MG PO SCH (19:45)
[2019-09-03] MEDS: LORazepam INJ* 2 MG/ML 1 ML VIAL IV PUSH PRN (05:45)
[2019-09-03 06:26] LABS: Hematocrit 34 % (42-52); Hemoglobin 11.7 g/dL (14.0-18.0); INR 2.01 (0.82-1.09); Mean Corpuscular HGB Conc 34 g/dL (31-36); Mean Corpuscular Hemoglobin 34 pg (27-31); Mean Corpuscular Volume 100 fL (80-94); Mean Platelet Volume 8.8 fL (7.4-10.4); Platelet Count 110 10^3/uL (150-450); Red Blood Count 3.39 10^6 /uL (4.18-5.48); Red Cell Distribution Width 16 % (10-15); White Blood Count 8.7 10^3/uL (3.5-10.8)
[2019-09-03 06:37] LABS: Albumin 3.3 g/dL (3.2-5.2); Albumin/Globulin Ratio 1.6 (1-3); Calcium 8.8 mg/dL (8.6-10.3); EGFR Non-African American 75.2 (>60); Globulin 2.1 g/dL (2-4); Phosphorus 2.2 mg/dL (2.5-5.0); Potassium 3.4 mmol/L (3.5-5.0); Total Protein 5.4 g/dL (6.4-8.9)
[2019-09-03 07:26] LABS: Indirect Bilirubin 15.7 mg/dL (0.3-1.0); Total Bilirubin 38.1 mg/dL (0.2-1.0)
[2019-09-03] MEDS ORDERED: Potassium Chlor TAB* 20 MEQ TAB.ER PO ONE (08:40)
[2019-09-03] MEDS: Folic Acid TAB* 1 MG PO SCH (10:25)
[2019-09-03] MEDS: chlordiazePOXIDE CAP* 5 MG PO SCH (10:26)
[2019-09-03] MEDS: Thiamine TAB* 100 MG TAB PO SCH (10:27)
[2019-09-03] MEDS: Multivitamins/Minerals TAB PO SCH (10:27)
[2019-09-03] MEDS: PrednisoLONE 3 MG/ML ORAL.SOLU 15 MG/5 ML ORAL.SOLN PO SCH (10:30)
[2019-09-03] MEDS ORDERED: Al Hydrox/Mg Hydrox/Simet LIQ* 30 ML UDC PO PRN (11:41)
--- NOTE | 2019-09-03 14:06 | PN ---
Subjective Date of Service: 09/03/19 Interval History: Pt more somnolent today. Able to arouse to voice. Reports feeling "indigestion" but denies pain, tremor, anxiety. Discussed with sister patient's poor prognosis. All questions answered. Objective Active Medications: Al Hydrox/Mg Hydrox/Simethicone (Maalox Plus*) 30 ml PO Q4H PRN PRN Reason: INDIGESTION Dextrose (Dextrose 50% Vial 50 Ml*) 25 ml IV PUSH .FOR FS < 60 - SS PRN PRN Reason: FS < 60 Folic Acid (Folvite Tab*) 1 mg PO DAILY [facility] Last Admin: 09/03/19 10:25 Dose: 1 mg Gabapentin (Neurontin Cap(*)) 300 mg PO BEDTIME [facility] Last Admin: 09/03/19 20:17 Dose: 300 mg Lactulose (Lactulose*) 30 ml PO TID [facility] Last Admin: 09/03/19 20:17 Dose: 30 ml Lorazepam (Ativan Inj*) 2 mg IV PUSH Q6H PRN PRN Reason: AGITATION Last Admin: 09/03/19 05:45 Dose: 2 mg Midodrine (Midodrine) 5 mg PO TID PRN; Protocol PRN Reason: give if SBP < 110 Miscellaneous (Ativan Pyxis Foley) 1 ea N/A .ATIVAN IV FOLEY PRN PRN Reason: PYXIS FOLEY Multivitamins/Minerals (Theragran/Minerals Tab*) 1 tab PO DAILY [facility] Last Admin: 09/03/19 10:27 Dose: 1 tab Ondansetron HCl (Zofran Odt Tab*) 4 mg SL Q12H PRN PRN Reason: NAUSEA/VOMITING Prednisolone Sodium Phosphate (Prednisolone 3 Mg/Ml 5 Ml Oral.Solution*) 40 mg PO DAILY [facility] Last Admin: 09/03/19 10:30 Dose: 40 mg Thiamine HCl (Vitamin B-1 Tab*) 100 mg PO DAILY [facility] Last Admin: 09/03/19 10:27 Dose: 100 mg Vital Signs - 8 hr 09/03/19 09/03/19 09/03/19 07:03 07:15 10:26 Temperature 98.1 F Pulse Rate 104 Respiratory 20 18 18 Rate Blood Pressure 125/65 (mmHg) O2 Sat by Pulse 100 Oximetry 09/03/19 09/03/19 10:39 11:15 Temperature 97.6 F Pulse Rate 90 Respiratory 16 20 Rate Blood Pressure 125/59 (mmHg) O2 Sat by Pulse 99 Oximetry Oxygen Devices in Use Now: None Appearance: somnolent but arousable to voice; appears comfortable Eyes: - - severe icterus Ears/Nose/Mouth/Throat: Mucous Membranes Moist Neck: NL Appearance and Movements; NL JVP Respiratory: Symmetrical Chest Expansion and Respiratory Effort, Clear to Auscultation Cardiovascular: NL Sounds; No Murmurs; No JVD, RRR Abdominal: NL Sounds; No Tenderness; No Distention, No Hepatosplenomegaly Extremities: No Edema Skin: - - diffuse jaundice Result Diagrams: 09/03/19 05:38 09/03/19 05:38 Microbiology and Other Data: Microbiology 08/28/19 07:38 Nasal Screen MRSA (PCR) - Final Nasal Mrsa Not Detected Assess/Plan/Problems-Billing Assessment: 44M with severe alcohol use disorder and alcoholic hepatitis, here with recurrent alcoholic hepatitis and alcohol withdrawal, now with likely DT. - Patient Problems (1) AH (alcoholic hepatitis) Comment: MELD score 30. MDF > 32. Complicated by pancytopenia, synthetic liver dysfunctuion. Liver US shows no hepatoma or ascites. Possible hepatic encephalopathy. - Appreciate GI consult; Continue prednisolone for MDF>32. - cont lactulose, titrate to 3 loose BM/day - Needs strict abstinence, even without has high risk of mortality. (2) ETOH abuse Comment: Now with likely delirium tremens. - cont lorazepam IV prn anxiety/agitation - cont folic acid, thiamine - supportive care (3) Portal vein thrombosis Comment: Significant portal HTN, Equivocal findings consistent with portal venous thrombosis - Will need screening endoscopy for varices before discharge - Cannot put on AC until varices ruled out (4) Hypotension Comment: Likely due to Precedex drip. Resolved. - cont midodrine started in ICU, switch to PRN (5) DVT prophylaxis Comment: - SCDs only in setting of thrombocytopenia and elevated INR. (6) Full code status Status and Disposition: Inpatient for management of Acute Hepatitis and Likely Alcohol Withdrawal.
--- NOTE | 2019-09-03 14:19 | PN ---
Subjective Date of Service: 09/03/19 Objective Active Medications: Al Hydrox/Mg Hydrox/Simethicone (Maalox Plus*) 30 ml PO Q4H PRN PRN Reason: INDIGESTION Dextrose (Dextrose 50% Vial 50 Ml*) 25 ml IV PUSH .FOR FS < 60 - SS PRN PRN Reason: FS < 60 Folic Acid (Folvite Tab*) 1 mg PO DAILY [facility] Last Admin: 09/03/19 10:25 Dose: 1 mg Gabapentin (Neurontin Cap(*)) 300 mg PO BEDTIME [facility] Last Admin: 09/02/19 19:45 Dose: 300 mg Lactulose (Lactulose*) 30 ml PO TID [facility] Lorazepam (Ativan Inj*) 2 mg IV PUSH Q6H PRN PRN Reason: AGITATION Last Admin: 09/03/19 05:45 Dose: 2 mg Midodrine (Midodrine) 5 mg PO TID PRN; Protocol PRN Reason: give if SBP < 110 Miscellaneous (Ativan Pyxis Foley) 1 ea N/A .ATIVAN IV FOLEY PRN PRN Reason: PYXIS FOLEY Multivitamins/Minerals (Theragran/Minerals Tab*) 1 tab PO DAILY [facility] Last Admin: 09/03/19 10:27 Dose: 1 tab Prednisolone Sodium Phosphate (Prednisolone 3 Mg/Ml 5 Ml Oral.Solution*) 40 mg PO DAILY [facility] Last Admin: 09/03/19 10:30 Dose: 40 mg Thiamine HCl (Vitamin B-1 Tab*) 100 mg PO DAILY [facility] Last Admin: 09/03/19 10:27 Dose: 100 mg Vital Signs - 8 hr 09/03/19 09/03/19 09/03/19 07:03 07:15 10:26 Temperature 98.1 F Pulse Rate 104 Respiratory 20 18 18 Rate Blood Pressure 125/65 (mmHg) O2 Sat by Pulse 100 Oximetry 09/03/19 09/03/19 10:39 11:15 Temperature 97.6 F Pulse Rate 90 Respiratory 16 20 Rate Blood Pressure 125/59 (mmHg) O2 Sat by Pulse 99 Oximetry Oxygen Devices in Use Now: None Result Diagrams: 09/03/19 05:38 09/03/19 05:38 Microbiology and Other Data: Microbiology 08/28/19 07:38 Nasal Screen MRSA (PCR) - Final Nasal Mrsa Not Detected Assess/Plan/Problems-Billing Assessment: 44M with severe alcohol use disorder and alcoholic hepatitis, here with recurrent alcoholic hepatitis and alcohol withdrawal, now with likely DT. - Patient Problems (1) AH (alcoholic hepatitis) Comment: MELD score 30. MDF > 32. Complicated by pancytopenia, synthetic liver dysfunctuion. Liver US shows no hepatoma. Possible hepatic encephalopathy. - Appreciate GI consult; Continue prednisolone for MDF>32. - Needs strict abstinence, even without has high risk of mortality. - cont lactulose, titrate to 2-3 BM/day (2) ETOH abuse Comment: Now with likely delirium tremens. - cont on PO long acting benzo with taper - cont lorazepam IV prn anxiety/agitation - cont folic acid, thiamine (3) Portal vein thrombosis Comment: Significant portal HTN, Equivocal findings consistent with portal venous thrombosis - Will need screening endoscopy for varices before discharge - Cannot put on AC until varices ruled out (4) Hypotension Comment: Likely due to Precedex drip. - cont midodrine started in ICU, switch to PRN (5) DVT prophylaxis Comment: - SCDs only in setting of thrombocytopenia and elevated INR. (6) Full code status Status and Disposition: Inpatient for management of Acute Hepatitis and Likely Alcohol Withdrawal.
[2019-09-03] MEDS ORDERED: Ondansetron ODT TAB* 4 MG SL PRN (15:26)
[2019-09-03] MEDS: Gabapentin CAP(*) 300 MG PO SCH (20:17)
[2019-09-04 06:04] LABS: Hematocrit 32 % (42-52); Hemoglobin 10.9 g/dL (14.0-18.0); Mean Corpuscular HGB Conc 34 g/dL (31-36); Mean Corpuscular Hemoglobin 35 pg (27-31); Mean Corpuscular Volume 101 fL (80-94); Mean Platelet Volume 8.6 fL (7.4-10.4); Platelet Count 101 10^3/uL (150-450); Red Blood Count 3.17 10^6 /uL (4.18-5.48); Red Cell Distribution Width 16 % (10-15); White Blood Count 7.8 10^3/uL (3.5-10.8)
[2019-09-04 06:31] LABS: Albumin 2.9 g/dL (3.2-5.2); Albumin/Globulin Ratio 1.5 (1-3); BUN/Creatinine Ratio 14.4 (8-20); Calcium 8.5 mg/dL (8.6-10.3); EGFR African American 86.3 (>60); EGFR Non-African American 71.3 (>60); Globulin 1.9 g/dL (2-4); Potassium 3.7 mmol/L (3.5-5.0); Total Protein 4.8 g/dL (6.4-8.9)
[2019-09-04] MEDS: PrednisoLONE 3 MG/ML ORAL.SOLU 15 MG/5 ML ORAL.SOLN PO SCH (08:21)
[2019-09-04] MEDS: Multivitamins/Minerals TAB PO SCH (08:22)
[2019-09-04] MEDS: Thiamine TAB* 100 MG TAB PO SCH (08:22)
[2019-09-04] MEDS: Folic Acid TAB* 1 MG PO SCH (08:23)
--- NOTE | 2019-09-04 15:19 | PN ---
Subjective Date of Service: 09/04/19 Interval History: Pt significantly improved on interview today. Alert and chatting with friend at bedside. No longer hallucinating. Asking appropriate questions. In good spirits. GI planning for EGD tomorrow. Objective Active Medications: Al Hydrox/Mg Hydrox/Simethicone (Maalox Plus*) 30 ml PO Q4H PRN PRN Reason: INDIGESTION Dextrose (Dextrose 50% Vial 50 Ml*) 25 ml IV PUSH .FOR FS < 60 - SS PRN PRN Reason: FS < 60 Folic Acid (Folvite Tab*) 1 mg PO DAILY [facility] Last Admin: 09/04/19 08:23 Dose: 1 mg Gabapentin (Neurontin Cap(*)) 300 mg PO BEDTIME [facility] Last Admin: 09/03/19 20:17 Dose: 300 mg Lactulose (Lactulose*) 30 ml PO TID [facility] Last Admin: 09/04/19 13:43 Dose: 30 ml Lorazepam (Ativan Inj*) 2 mg IV PUSH Q6H PRN PRN Reason: AGITATION Last Admin: 09/03/19 05:45 Dose: 2 mg Miscellaneous (Ativan Pyxis Foley) 1 ea N/A .ATIVAN IV FOLEY PRN PRN Reason: PYXIS FOLEY Multivitamins/Minerals (Theragran/Minerals Tab*) 1 tab PO DAILY [facility] Last Admin: 09/04/19 08:22 Dose: 1 tab Ondansetron HCl (Zofran Odt Tab*) 4 mg SL Q12H PRN PRN Reason: NAUSEA/VOMITING Prednisolone Sodium Phosphate (Prednisolone 3 Mg/Ml 5 Ml Oral.Solution*) 40 mg PO DAILY [facility] Last Admin: 09/04/19 08:21 Dose: 40 mg Thiamine HCl (Vitamin B-1 Tab*) 100 mg PO DAILY [facility] Last Admin: 09/04/19 08:22 Dose: 100 mg Vital Signs - 8 hr 09/04/19 09/04/19 09/04/19 08:00 08:13 08:31 Temperature 97.2 F Pulse Rate 87 96 Respiratory 17 17 Rate Blood Pressure 111/54 (mmHg) O2 Sat by Pulse 99 Oximetry 09/04/19 11:24 Temperature 97.7 F Pulse Rate 90 Respiratory 20 Rate Blood Pressure 119/62 (mmHg) O2 Sat by Pulse 97 Oximetry Oxygen Devices in Use Now: None Appearance: ill appearing but in NAD, alert and interactive Eyes: - - +scleral icterus Ears/Nose/Mouth/Throat: Clear Oropharnyx, Mucous Membranes Moist Neck: NL Appearance and Movements; NL JVP, Trachea Midline Respiratory: Symmetrical Chest Expansion and Respiratory Effort, Clear to Auscultation Cardiovascular: NL Sounds; No Murmurs; No JVD, RRR Abdominal: NL Sounds; No Tenderness; No Distention, No Hepatosplenomegaly Extremities: No Edema Neurological: - - no asterixis Result Diagrams: 09/04/19 05:44 09/04/19 05:44 Microbiology and Other Data: Microbiology 08/28/19 07:38 Nasal Screen MRSA (PCR) - Final Nasal Mrsa Not Detected Assess/Plan/Problems-Billing Assessment: 44M with severe alcohol use disorder and alcoholic hepatitis, here with recurrent alcoholic hepatitis and alcohol withdrawal, now with likely DT. - Patient Problems (1) AH (alcoholic hepatitis) Comment: MELD score 30. MDF > 32. Complicated by pancytopenia, synthetic liver dysfunctuion. Liver US shows no hepatoma or ascites. Possible hepatic encephalopathy. - Appreciate GI consult; Continue prednisolone for MDF>32. - cont lactulose, titrate to 3 loose BM/day - Needs strict abstinence, even without has high risk of mortality. (2) ETOH abuse Comment: Now with likely delirium tremens. - cont lorazepam IV prn anxiety/agitation - cont folic acid, thiamine - supportive care (3) Portal vein thrombosis Comment: Significant portal HTN, Equivocal findings consistent with portal venous thrombosis - Will need screening endoscopy for varices before discharge - Cannot put on AC until varices ruled out (4) DVT prophylaxis Comment: - SCDs only in setting of thrombocytopenia and elevated INR. (5) Full code status Status and Disposition: Inpatient for management of Acute Hepatitis and Likely Alcohol Withdrawal.
--- NOTE | 2019-09-04 16:07 | PN ---
Progress Note - Progress Note Date of Service: 09/04/19 Note: follow-up EtOH hepatitis, on steroids, knows date, location, no complaints, want to move in with sister in [place]; 97.7, 148/72 nad, jaundiced +bs, soft no asterixis MELD 29 INR 2.01, Cr 1.11, bili 33 EtOH hepatitis---->continue steroids, not liver txp candidate, avoid EtOH, no ascites on US; continue with lactulose López Rosario MD [facility]
[2019-09-04] MEDS: Gabapentin CAP(*) 300 MG PO SCH (21:44)
[2019-09-05 05:04] LABS: Hematocrit 32 % (42-52); Hemoglobin 11.3 g/dL (14.0-18.0); Mean Corpuscular HGB Conc 36 g/dL (31-36); Mean Corpuscular Hemoglobin 36 pg (27-31); Mean Corpuscular Volume 100 fL (80-94); Mean Platelet Volume 8.6 fL (7.4-10.4); Platelet Count 111 10^3/uL (150-450); Red Blood Count 3.16 10^6 /uL (4.18-5.48); Red Cell Distribution Width 16 % (10-15); White Blood Count 8.9 10^3/uL (3.5-10.8)
[2019-09-05 05:10] LABS: INR 2.27 (0.82-1.09)
[2019-09-05 05:22] LABS: BUN/Creatinine Ratio 14.8 (8-20); Calcium 8.5 mg/dL (8.6-10.3); EGFR African American 82.8 (>60); EGFR Non-African American 68.5 (>60); Potassium 3.2 mmol/L (3.5-5.0)
[2019-09-05 05:24] LABS: Magnesium 2.1 mg/dL (1.9-2.7)
[2019-09-05] MEDS: LORazepam INJ* 2 MG/ML 1 ML VIAL IV PUSH PRN (09:01)
[2019-09-05] MEDS ORDERED: Potassium Chlor TAB* 20 MEQ TAB.ER PO ONE (10:25)
[2019-09-05] MEDS ORDERED: fentaNYL* 50 MCG/ML 2 ML VIAL (100 MCG VIAL) ONE (15:20)
[2019-09-05] MEDS ORDERED: Midazolam* 1 MG/ML 10 ML VIAL (10 MG) ONE (15:20)
[2019-09-05] MEDS: Multivitamins/Minerals TAB PO SCH (16:33)
[2019-09-05] MEDS: Folic Acid TAB* 1 MG PO SCH (16:33)
[2019-09-05] MEDS: Thiamine TAB* 100 MG TAB PO SCH (16:33)
[2019-09-05] MEDS: PrednisoLONE 3 MG/ML ORAL.SOLU 15 MG/5 ML ORAL.SOLN PO SCH (16:34)
--- NOTE | 2019-09-05 16:39 | PN ---
Subjective Date of Service: 09/05/19 Interval History: No acute events overnight. Again alert and interactive on exam without hallucinations. States that he would prefer to live with his sister to maintain sobriety and stay alive for his children. He has one kid in high school and another in undergrad. Per Dr. Erwin, EGD without varices. Recommend short course of PPI given esophagitis. Objective Active Medications: Al Hydrox/Mg Hydrox/Simethicone (Maalox Plus*) 30 ml PO Q4H PRN PRN Reason: INDIGESTION Last Admin: 09/04/19 21:44 Dose: 30 ml Dextrose (Dextrose 50% Vial 50 Ml*) 25 ml IV PUSH .FOR FS < 60 - SS PRN PRN Reason: FS < 60 Folic Acid (Folvite Tab*) 1 mg PO DAILY [facility] Last Admin: 09/05/19 16:33 Dose: 1 mg Gabapentin (Neurontin Cap(*)) 300 mg PO BEDTIME [facility] Last Admin: 09/04/19 21:44 Dose: 300 mg Lactulose (Lactulose*) 30 ml PO TID [facility] Last Admin: 09/05/19 16:33 Dose: 30 ml Lorazepam (Ativan Inj*) 2 mg IV PUSH Q6H PRN PRN Reason: AGITATION Last Admin: 09/05/19 09:01 Dose: 2 mg Miscellaneous (Ativan Pyxis Foley) 1 ea N/A .ATIVAN IV FOLEY PRN PRN Reason: PYXIS FOLEY Multivitamins/Minerals (Theragran/Minerals Tab*) 1 tab PO DAILY [facility] Last Admin: 09/05/19 16:33 Dose: 1 tab Ondansetron HCl (Zofran Odt Tab*) 4 mg SL Q12H PRN PRN Reason: NAUSEA/VOMITING Pantoprazole Sodium (Protonix Tab*) 40 mg PO 0600 [facility] Prednisolone Sodium Phosphate (Prednisolone 3 Mg/Ml 5 Ml Oral.Solution*) 40 mg PO DAILY [facility] Last Admin: 09/05/19 16:34 Dose: 40 mg Thiamine HCl (Vitamin B-1 Tab*) 100 mg PO DAILY [facility] Last Admin: 09/05/19 16:33 Dose: 100 mg Vital Signs - 8 hr 09/05/19 09/05/19 09/05/19 09:01 10:46 11:15 Temperature 97.7 F Pulse Rate 103 Respiratory 20 20 18 Rate Blood Pressure 98/56 (mmHg) O2 Sat by Pulse 99 Oximetry 09/05/19 15:15 Temperature 97.3 F Pulse Rate 97 Respiratory 20 Rate Blood Pressure 109/60 (mmHg) O2 Sat by Pulse 100 Oximetry Appearance: chronically unwell appearing but not in acute distress, nontoxic, alert and interactive Eyes: - - +scleral icterus Ears/Nose/Mouth/Throat: Clear Oropharnyx, Mucous Membranes Moist Neck: NL Appearance and Movements; NL JVP, Trachea Midline Respiratory: Symmetrical Chest Expansion and Respiratory Effort, Clear to Auscultation Cardiovascular: NL Sounds; No Murmurs; No JVD, RRR Abdominal: NL Sounds; No Tenderness; No Distention, No Hepatosplenomegaly Extremities: No Edema Neurological: - - knew month/day/year with prompting, no asterixis Result Diagrams: 09/05/19 04:48 09/05/19 04:48 Microbiology and Other Data: Microbiology 08/28/19 07:38 Nasal Screen MRSA (PCR) - Final Nasal Mrsa Not Detected Assess/Plan/Problems-Billing Assessment: 44M with severe alcohol use disorder and alcoholic hepatitis, here with recurrent alcoholic hepatitis and alcohol withdrawal, now with likely DT. - Patient Problems (1) AH (alcoholic hepatitis) Comment: MELD score 30. MDF > 32. Complicated by pancytopenia, synthetic liver dysfunctuion. Liver US shows no hepatoma or ascites. Possible hepatic encephalopathy. - Appreciate GI consult; Continue prednisolone for MDF>32. - cont lactulose, titrate to 3 loose BM/day - Needs strict abstinence, even without has high risk of mortality. (2) ETOH abuse Comment: Now with likely delirium tremens. - cont lorazepam IV prn anxiety/agitation - cont folic acid, thiamine - supportive care (3) DVT prophylaxis Comment: - SCDs only in setting of thrombocytopenia and elevated INR. (4) Full code status Status and Disposition: Inpatient for management of Acute Hepatitis and Likely Alcohol Withdrawal.
[2019-09-05] MEDS: Gabapentin CAP(*) 300 MG PO SCH (19:59)
--- NOTE | 2019-09-05 21:40 | PRO ---
DATE: 09/05/19 - ROOM #437 REFERRING PHYSICIANS: Dr. Tomeka Abraham, Dr. Ted Mckinley.* PROCEDURE: Upper gastrointestinal endoscopy with pediatric scope through to distal duodenum. INDICATION: This 44-year-old man, who had been drinking beer quite heavily, has been in the ICU, clearly, has severe alcoholic hepatitis, posed on an underlying cirrhosis. His bilirubin went up to 38 a couple of days ago. His INR is prolonged. He did improve and was discharged from the ICU 2 days ago. He has been eating. Upper endoscopy 3-1/2 years ago when he was admitted with an earlier bout of alcoholic hepatitis did not show any varices. This was by Dr. Jose A Humphrey. During initial imaging, over the first 48 hours the portal vein was said to be patent on one study and then could not be visualized on an ultrasound. Intraabdominal varices have been seen. He does not have ascites. There has been some question of anticoagulation. There was also a question of ruling out varices. Assessing his overall difficult situation, it was elected to do him with a pediatric scope. ENDOSCOPIST: Dr. Erwin. MEDICATIONS: Midazolam 3, fentanyl 50. FINDINGS: He is an intensely jaundiced young man, in no overt distress. He is a little shaky. He is alert and oriented. He was positioned left side down and moderate sedation induced with these doses. He seemed to tolerate the exam well. EGD: Larynx - not seen. Esophagus - easily entered and the mucosa was normal in the upper half of the esophagus. Then, erosive changes noted with easy friability. There was some exudate progressively in linear stripes consistent with peptic and quite possibly combined caustic change. There were no varices. There were no ulcers focally. There was much friability and some oozing from the friability, but it terminated quickly. EG junction at 40, minimally loose. Again, there was no active hemorrhage and no ulcers. Stomach - mild erythema and reticular appearance consistent with portal hypertensive gastropathy. Contours were normal. No ulcer was seen. There was no blood in the stomach. The antrum appeared normal. Duodenum - the pylorus and bulb appeared normal, though the contours of the apex of the bulb were somewhat rounded appearing to be from deep structures, potentially deep varices. There were no erosions and no stigmata of hemorrhage. The second through fourth portions of the duodenum appeared normal. IMPRESSION: 1. Erosive esophagitis - would treat with twice a day PPI, anti fungal and also be sure about medication transit without causing caustic injury. 2. Portal hypertensive gastropathy - his underlying liver disease is being treated. Avoid NSAIDs by educating family and caregivers [id number]/CPS #: [id number] MTDD
[2019-09-06] MEDS ORDERED: Pantoprazole TAB * 40 MG TAB PO SCH (06:00)
[2019-09-06 06:57] LABS: Albumin 3.1 g/dL (3.2-5.2); Albumin/Globulin Ratio 1.6 (1-3); EGFR African American 68.8 (>60); EGFR Non-African American 56.9 (>60); Potassium 3.8 mmol/L (3.5-5.0); Total Protein 5.1 g/dL (6.4-8.9)
[2019-09-06 07:23] LABS: Indirect Bilirubin 14.3 mg/dL (0.3-1.0); Total Bilirubin 37.2 mg/dL (0.2-1.0)
[2019-09-06 08:53] LABS: Magnesium 2.3 mg/dL (1.9-2.7)
[2019-09-06] MEDS: PrednisoLONE 3 MG/ML ORAL.SOLU 15 MG/5 ML ORAL.SOLN PO SCH (10:22)
[2019-09-06] MEDS: Folic Acid TAB* 1 MG PO SCH (10:24)
[2019-09-06] MEDS: Multivitamins/Minerals TAB PO SCH (10:24)
[2019-09-06] MEDS: Thiamine TAB* 100 MG TAB PO SCH (10:24)
[2019-09-06 16:03] VITALS: BP 127/67
--- NOTE | 2019-09-06 16:24 | PN ---
Progress Note - Progress Note Date of Service: 09/06/19 Note: BRIEF GI FOLLOW-UP Spoke with Dr Johnson re: patient. He has remained on steroids for Alcoholic hepatitis since 08/25. Reviewed labs w/ Dr Johnson. [place] Model calculator can be used to predict if patients are improving on steroids for alc hep tx. We do not have PT level available for this patient, although it will be higher than normal given elevated INR. Even if model is run using a normal PT, the score is >0.8. Scores higher than 0.45 indicate higher mortality risk and lack of response to glucocorticoid therapy (after 1 wk). Would recommend discontinuing Prednisolone. Continue supportive care. Patient's mortality risk is high over next few months (given severity of liver disease) as discussed in more detail in Dr Mckinley's consult note. Will arrange FU in clinic within next two weeks if patient is discharged soon. Saritha Kitchen MD Gastroenterology
--- NOTE | 2019-09-08 04:23 | DS ---
CC: [facility] [place]; Dr. Mckinley * DISCHARGE SUMMARY: DATE OF ADMISSION: 08/25/19 DATE OF DISCHARGE: 09/06/19 PRIMARY CARE PROVIDER: To be established with the [facility]. PRINCIPAL DIAGNOSES: 1. Acute alcoholic hepatitis. 2. Mild hepatic encephalopathy. SECONDARY DIAGNOSIS: Alcohol abuse. DISCHARGE MEDICATIONS: 1. Thiamine 100 mg p.o. daily. 2. Protonix 40 mg p.o. daily. 3. Multivitamin 1 tab p.o. daily. 4. Lactulose 30 mL p.o. t.i.d. 5. Gabapentin 300 mg p.o. q.h.s. 6. Folic acid 1 mg p.o. daily. HOSPITAL COURSE: Mr. Begum is a 44-year-old male who presented to the emergency room on 08/25/19 with complaints of jaundice. The patient has a longstanding history of alcohol abuse, who noted that his abdomen became bloated and his skin discolored to yellow. The patient became concerned due to the jaundice and presented to the emergency room. The patient was admitted for evaluation of liver failure secondary to alcohol abuse. He was seen in consultation by Dr. Mckinley on the day of admission due to his alcoholic hepatitis. His discriminant function was greater than 32 and therefore it was recommended that he be started on prednisolone 40 mg p.o. daily. The patient's MELD-Na score is 28 indicating a risk of of about 30% over the next 3 months; however, with a component of alcoholic hepatitis, his risk of is likely in excess of greater than 45% even with optimal medical therapy. He is not felt to be a transplantation candidate given multiple relapses in the past. The patient subsequently required admission to the ICU on 08/27/19 due to severe alcohol withdrawal. He was reportedly at that time responding to internal stimuli, not following any orders or instructions. He also required 4 - point restraints with security. In the ICU, the patient required Precedex. He had an NG tube placed at one point and this the patient pulled out. This had to be replaced. He was again tube feeds. By 09/01/19, the patient was improving and felt to be able to be transferred from the ICU back to the medical floor. During this period of time, the patient had a bilirubin level that hovered in the 26 to 34 range. This was despite being having been started on prednisolone by GI on the day of admission. The patient's AST trended from 246 on the day of admission to 76 on the day of transfer from the ICU. Additionally, the patient's ammonia level was markedly elevated on admission and generally improved over the course of his time in the ICU. He was requiring lactulose for treatment of hepatic encephalopathy. On 08/26/19, the patient was found to have a possible incomplete right portal vein thrombosis. It was recommended that the patient undergo EGD prior to initiating anticoagulation to rule out varices. On 09/05/19, the patient underwent EGD. This revealed erosive esophagitis, which should be treated with PPI and he was also found to have portal hypertensive gastropathy. On 09/06/19, the patient was feeling much improved. He had no signs of hepatic encephalopathy. He was very anxious to be discharged home. The patient had a Lille score calculated to determine if he had shown any benefit from the steroids. Even running the calculation with a normal PT (as the patient did not have a PT calculated on his labs), the patient's Lille score was greater than 0.45 indicating a higher mortality risk and lack of response to glucocorticoid therapy. At that point, it was recommended that the patient's prednisolone be discontinued. Despite finding of possible right portal vein thrombosis, the patient's HAS-BLED score is 4 indicating an 8.9% bleeds per 100-patient years and alternative to anticoagulation should be considered. The patient was felt to be a high risk for major bleeding. Because of this, the patient was not started on anticoagulation. The patient is going to be following up with the [facility] on 09/12/19. At that time, further discussion can be had about initiating anticoagulation or getting followup imaging. On the day of discharge, the patient is awake, alert, and oriented, sitting in a chair, in no acute distress. He is markedly jaundiced. He has a normal S1, S2 with a regular rate and rhythm. His lungs are clear. His abdomen is soft, mildly distended, and nontender. He has no lower extremity edema. At this point, it was felt the patient is stable for discharge home to his sister's house where he will be living to try to maintain sobriety. FOLLOWUP CONCERNS: The patient is being discharged today, 09/06/19. Activity level is as tolerated. Diet is a healthy diet, low in processed foods and low protein. CONDITION ON DISCHARGE: Guarded. The patient's severity of illness and guarded condition was discussed in length and fully with the patient and his sister. The patient is to follow up at the [facility] on 09/12/19 at 8:20 a.m. The patient is also to follow up with Dr. Mckinley in 3 to 4 weeks. The patient has been instructed that if he does not hear from the GI office he should contact them to ensure that a followup appointment has been made. TIME SPENT: Forty five minutes was spent discharging this patient. [id number]/CPS #: [id number] MELISSA
== END 2019-09-06 17:30 | disposition home or self-care (01) | DRG 432 ==
LOC: ED 10:37 → MED 14:19 → ICU 08-27 21:17 → MEDTELE 09-01 15:48
PROVIDERS: ADMIT Internal Medicine; ATTEND Hospitalist
PROC: 0DJ08ZZ Inspection of Upper Intestinal Tract, Via Natural or Artificial Opening Endoscopic (ICD-10-PCS; principal; 2019-09-05)
DX: K70.10 Alcoholic hepatitis without ascites (principal); I81 Portal vein thrombosis; D61.818 Other pancytopenia; K76.6 Portal hypertension; F10.231 Alcohol dependence with withdrawal delirium; E72.20 Disorder of urea cycle metabolism, unspecified; E87.1 Hypo-osmolality and hyponatremia; D68.4 Acquired coagulation factor deficiency; K22.10 Ulcer of esophagus without bleeding; D53.9 Nutritional anemia, unspecified; D50.9 Iron deficiency anemia, unspecified; R73.9 Hyperglycemia, unspecified; F41.9 Anxiety disorder, unspecified; I95.2 Hypotension due to drugs; E87.6 Hypokalemia; E83.51 Hypocalcemia; R68.0 Hypothermia, not associated with low environmental temperature; E83.42 Hypomagnesemia; T42.6X5A Adverse effect of other antiepileptic and sedative-hypnotic drugs, initial encounter; Y92.239 Unspecified place in hospital as the place of occurrence of the external cause; K31.89 Other diseases of stomach and duodenum; Z87.891 Personal history of nicotine dependence; Z83.3 Family history of diabetes mellitus; Z78.1 Physical restraint status; Z28.21 Immunization not carried out because of patient refusal
CPT/HCPCS: 36415; 71045; 74160; 76705; 80048; 80053; 80076; 80320; 82140; 82248; 83036; 83690; 83735; 84100; 85025; 85027; 85060; 85610; 87641; 99156; 99157; 99284; A9270-GY; G0480; J0610; J1200; J1630; J2060; J2250; J3010; J3411; J3475; J3480; J7510; P9047; Q9967